=== PATIENT | female | born 1980 | race Caucasian/White ===

== ENCOUNTER 2024-09-27 10:43 | Outpatient (REF) | payer MEDICAID, SELFPAY ==
--- OUTSIDE RECORDS SUMMARY | 2024-09-27 12:37 | XMS_ITS | Encounter Summary ---
Author Organization [employer] Address [address] [place] [address] Care Team Providers Care Real Estate Consultant Name Role Phone Irvin Mensah MD Primary Care Prov ider Reason for Referral * Neurology (Routine) - Pending Review Specialty Diagnoses / Procedures Referred By Contac t Referred To Contact Diagnoses Bilateral carpal tunnel syndrome Procedures EMG Irvin Mensah MD [address] [place] [phone] Phone: tel: fax: Referral ID Status Reason Start Date Expiration Date V isits Requested Visits Authorized [id number] Pending Review 09/27/2024 09/27/2025 1 1 * Consultation (Routine) - Pending Review Specialty Diagnoses / Procedures Referred By Contac t Referred To Contact Physical Therapy Diagnoses Bilateral elbow joint pain Irvin Mensah MD [address] [place] [address] Phone: tel: fax: Referral ID Status Reason Start Date Expiration Date Visits Requested Visits Authorized [id number] Pending Review Specialty Services Required 09/27/2024 09/27/2025 1 1 * Consultation (Routine) - Pending Review Specialty Diagnoses / Procedures Referred By Contac t Referred To Contact Gastroenterology Diagnoses Screening for colon cancer Irvin Mensah MD [address] [place] [address] Phone: tel: fax: Referral ID Status Reason Start Date Expiration Date Visits Requested Visits Authorized [id number] Pending Review Specialty Services Required 09/27/2024 09/27/2025 1 1 * Imaging (Routine) - Authorized Specialty Diagnoses / Procedures Referred By Contac t Referred To Contact Radiology Diagnoses Encounter for screening mammogram for malignant neoplasm of breast Procedures BI Mammogram Screening Tomosynthesis Bilateral Irvin Mensah MD [address] [place] [address] Phone: tel: fax: [address] Phone: tel: fax: Referral ID Status Reason Start Date Expiration Date V isits Requested Visits Authorized [id number] Authorized 09/27/2024 09/27/2025 1 1 Encounter Details Date Type Department Care Team (Late st Contact Info) Description 09/27/2024 9:45 AM EDT Office Visit [facility] [address] [place] [address] Irvin Mensah MD [address] [place] [address] Encounter for medical examination to establish care (Primary Dx); Encounter for screening mammogram for malignant neoplasm of breast; Screening for colon cancer; Encounter for immunization; Bilateral elbow joint pain; Bilateral carpal tunnel syndrome Social History Tobacco Use Types Packs/Day Years Used Date Smoking Tobacco: Never Smokeless Tobacco: Never Tobacco Cessation:Counseling Given: Not Answered Alcohol Use Standard Drinks/Week Comments Yes 0 (1 standard drink = 0.6 oz pur e alcohol) social Depression Answer Date Recorded Patient Health Questionnaire-9 Score 0 09/27/2024 Patient Health Questionnaire-9 Score 0 09/27/2024 Last PHQ-9: Questionnaire Data Not on file 0 09/27/2024 Housing Stability Answer Date Recorded What is your housing situation today? I have mack lazar 09/17/[address] you li ve. Do you have problems with any of the following? None of the above 09/17/2024 Food Insecurity Answer Date Recorded Within the past 12 months, y ou worried that your food would run out before you got money to buy more: Never True 09/17/2024 Within the past 12 months,th e food you bought just didn't last and you didn't have enough money to get more: Never True Transportation Answer Date Recorded In the past 12 months, has l ack of transportation kept you from medical appts, meetings, work or from getting things needed for daily living? No 09/17/2024 Utilities Answer Date Recorded In the past 12 months, has t he electric, gas, oil or water company threatened to shut off services in your home? No 09/17/2024 Depression Answer Date Recorded Patient Health Questionnaire-2 Score 1 09/27/2024 Internet Access Answer Date Recorded Internet Access Q1 Yes 09/17/2024 Internet Access Q2 Not on file 09/17/2024 Comments Unknown Sex and Gender Information Value Date Recorded Sex Assigned at Female 09/26/2024 9:12 AM EDT Legal Sex Female 10:57 AM EST Gender Identity Female 09/26/2024 9:12 AM EDT Sexual Orientation Straight 09/27/2024 11 :45 AM EDT documented as of this encounter Last Filed Vital Signs Vital Sign Reading Time Taken Comments Blood Pressure 119/80 09/27/2024 9:56 AM EDT Pulse 82 09/27/2024 9:56 AM EDT Temperature 36.7 ??C (98.1 ??F) 09/27/2024 9:56 AM ED T Respiratory Rate 20 09/27/2024 9:56 AM EDT Oxygen Saturation 97% 09/27/2024 9:56 AM EDT Inhaled Oxygen Concentration - - Weight 67 kg (147 lb 12.8 oz) 09/27/2024 9:56 AM EDT Height 156 cm (5' 1.42 ) 09/27/2024 9:56 AM EDT Body Mass Index 27.55 09/27/2024 9:56 AM EDT documented in this encounter Progress Notes * Irvin Goel MD - 09/27/2024 9:45 AM EDT Subjective Patient ID: Aileen Monahan is a 43 y.o. female who presents for No chief complaint on file.. HPI Patient was scheduled for a office visit to establish medical care Review of Systems Constitutional: Negative for chills, fatigue and fever. Respiratory: Negative for cough and shortness of breath. Cardiovascular: Negative for chest pain and palpitations. Objective Physical Exam Constitutional: Appearance: Normal appearance. Cardiovascular: Rate and Rhythm: Normal rate. Heart sounds: No murmur heard. Pulmonary: Effort: Pulmonary effort is normal. No respiratory distress. Breath sounds: No stridor. No wheezing or rhonchi. Neurological: General: No focal deficit present. Mental Status: She is alert and oriented to person, place, and time. Psychiatric: Mood and Affect: Mood normal. Behavior: Behavior normal. Assessment/Plan Problem List Items Addressed This Visit Encounter for medical examination to establish care - Primary Last pcp visit >5 years ago Hospitalization: - ER:- [facility]x:- [facility] All: - Meds: motrin 800mg Menarche: 11yrs LMP: 09/13/24 A1 Relevant Orders CBC auto differential Comprehensive Metabolic Panel Hemoglobin A1c Lipid Panel, Standard TSH W/Reflex to FT4 HIV-1/2 Antigen and Antibodies, Fourth Generation, with Reflexes Hepatitis C Antibody with Reflex to HCV, RNA, Quantitative, Real-Time PCR Encounter for screening mammogram for malignant neoplasm of breast Relevant Orders BI Mammogram Screening Tomosynthesis Bilateral Screening for colon cancer Will place referral Relevant Orders Referral to Gastroenterology Other Visit Diagnoses Encounter for immunization Relevant Orders TDAP VACCINE 7 yrs + Bilateral elbow joint pain Relevant Orders Referral to Physical Therapy Bilateral carpal tunnel syndrome Relevant Orders EMG documented in this encounter Miscellaneous Notes * Assessment & Plan Note - Irvin Goel MD - 09/27/2024 10:17 AM EDTAssociated Problem(s): Screening for colon cancer Will place referral * Assessment & Plan Note - Irvin Goel MD - 09/27/2024 10:09 AM EDTAssociated Problem(s): Encounter for medical examination to establish care Last pcp visit >5 years ago Hospitalization: - ER:- [facility]mhx:- [facility]: [facility] All: - Meds: motrin 800mg Menarche: 11yrs LMP: 09/13/24 A1 documented in this encounter Plan of Treatment Scheduled Orders Name Type Priority Associated Diagnoses Orde r Schedule BI Mammogram Screening Tomosynthesis Bilateral Imaging Routine Encounter for screening mammogram for malignant neoplasm of breast Expected: 09/27/2024, Expires: 11/27/2025 CBC auto differential Lab Routine Encounter for medical examination to establish care Expected: 09/27/2024 (Approximate), Expires: 09/27/2025 Comprehensive Metabolic Panel Lab Routine Encounter for medical examination to establish care Expected: 09/27/2024 (Approximate), Expires: 09/27/2025 Hemoglobin A1c Lab Routine Encounter for medical examination to establish care Expected: 09/27/2024 (Approximate), Expires: 09/27/2025 Lipid Panel, Standard Lab Routine Encounter for medical examination to establish care Expected: 09/27/2024 (Approximate), Expires: 09/27/2025 TSH W/Reflex to FT4 Lab Routine Encounter for medical examination to establish care Expected: 09/27/2024 (Approximate), Expires: 09/27/2025 HIV-1/2 Antigen and Antibodies, Fourth Generation, with Reflexes Lab Routine Encounter for medical examination to establish care Expected: 09/27/2024 (Approximate), Expires: 09/27/2025 Hepatitis C Antibody with Reflex to HCV, RNA, Quantitative, Real-Time PCR Lab Routine Encounter for medical examination to establish care Expected: 09/27/2024, Expires: 09/27/2025 EMG Neurology Routine Bilateral carpal tunnel syndrome Expected: 09/27/2024, Expires: 03/29/2025 Scheduled Referrals Name Type Priority Associated Diagnoses Order Schedule Referral to Gastroenterology Outpatient Referral Routine Screening for colon cancer Expected: 09/27/2024 (Approximate), Expires: 09/27/2025 Referral to Physical Therapy Outpatient Referral Routine Bilateral elbow joint pain Expected: 09/27/2024 (Approximate), Expires: 09/27/2025 documented as of this encounter Visit Diagnoses Diagnosis Encounter for medical examination to establish care- Primary Encounter for screening mammogram for malignant neoplasm of breast Screening for colon cancer Special screening for malignant neoplasms, colon Encounter for immunization Bilateral elbow joint pain Bilateral carpal tunnel syndrome Carpal tunnel syndrome documented in this encounter Additional Health Concerns Assessment Noted Time PHQ-9 Depression Total Score: 0 09/28/19 9:57 AM EDT documented as of this encounter Care Teams Real Estate Consultant Relationship Specialty Start Date End Date ArciniegaIrvin Griffin MD [address] [place] [phone] PCP - General Internal Medicine 09/27/24 documented as of this encounter
--- OUTSIDE RECORDS SUMMARY | 2024-09-27 12:37 | XMS_ITS | Clinical Summary ---
Author Organization [employer] Address [address] [place] [address] [address] [place] [address] Care Team Providers Care Ocean Forwarder Name Role Phone Irvin Mensah MD Primary Care Prov ider Active Problems Problem Noted Date Diagnosed Date Encounter for medical examination to establish c are 09/27/2024 Assessment & Plan (09/27/2024 10:09 AM EDT): Last pcp visit >5 years ago Hospitalization: - ER:- [facility]:- [facility] All: - Meds: motrin 800mg Menarche: 11yrs LMP: 09/13/24 A1 Encounter for screening mamm ogram for malignant neoplasm of breast 09/27/2024 Screening for colon cancer 09/27/2024 Assessment & Plan (09/27/2024 10:17 AM EDT): Will place referral Encounters Date Type Department Care Team Description 09/27/2024 9:45 AM EDT Office Visit [facility] [address] [place] [address] Irvin Mensah MD Encounter for medical examination to establish care (Primary Dx); Encounter for screening mammogram for malignant neoplasm of breast; Screening for colon cancer; Encounter for immunization; Bilateral elbow joint pain; Bilateral carpal tunnel syndrome 09/27/2024 Travel 09/17/2024 Patient Outreach [facility] [address] [place] [address] Irvin Mensah MD Pre-visit Planning (SDOH screening negative and Tobacco screening negative) 08/29/2024 Population Health Risk Score [facility] [address] [place] [id number] Provider, Population Health Generic from Last 3 Months Family History Medical History Relation Name Comments Cancer Father Diabetes Mother Hypertension Mother Breast cancer Sister Relation Name Status Comments Father Mother Sister Social History Tobacco Use Types Packs/Day Years [...] Orientation Straight 09/27/2024 11 :45 AM EDT Last Filed Vital Signs Vital Sign Reading [...] Mass Index 27.55 09/27/2024 9:56 AM EDT Plan of Treatment Health Maintenance Due Date Last Done Comments HIV Screening 1979 Family Planning (PISQ) 12/12/1994 Hepatitis C Screening 12/12/1997 DTaP/Tdap/Td Vaccines (1 - Tdap) 12/12/1998 Hepatitis B Vaccines (1 of 3 - 19+ 3-dose series) 12/12/1998 Pap Smear 12/12/2000 Cervical Cancer Screening 12/12/2009 HPV/Cotest 12/12/2009 Mammogram 2019 COVID-19 Vaccine ( - 2023-2 5 season) 2024 Influenza Vaccine (#1) 2024 Alcohol/Substance Use Screening 09/27/2025 09/27/2024 Depression Screening 09/27/2025 09/27/2024, 09/27/2024 SDOH Screening 09/27/2025 09/27/2024 Tobacco Screening 09/27/2025 09/27/2024 Zoster Vaccines (1 of 2) 12/12/2029 RSV Patients and Patients Aged 60 years or older (1 - 1-dose 75+ series) 12/12/2054 HIB Vaccines Aged Out No longer eligi ble based on patient's age to complete this topic HPV Vaccines Aged Out No longer eligi ble based on patient's age to complete this topic Hepatitis A Vaccines Aged Out No long er eligible based on patient's age to complete this topic IPV Vaccines Aged Out No longer eligi ble based on patient's age to complete this topic Meningococcal Vaccine Aged Out No meggan sunny eligible based on patient's age to complete this topic Pneumococcal Vaccine: Pediatrics (0 to 5 Years) and At-Risk Patients (6 to 49) Years) Aged Out No longer eligible b ased on patient's age to complete this topic RSV under 20 months Aged Out No longe r eligible based on patient's age to complete this topic Rotavirus Vaccines Aged Out No longer eligible based on patient's age to complete this topic Insurance Anna [employer]oz[employer] [facility] Care Teams Ocean Forwarder Relationship Specialty Start Date End Date Irivn Mensah MD [address] [place] [phone] PCP - General Internal Medicine 09/27/24
--- OUTSIDE RECORDS SUMMARY | 2024-09-27 12:37 | XMS_ITS | Encounter Summary ---
Author Organization [employer] Address [address] [facility] [address] [place] [address] Care Team Providers Care Measurement Specialist Name Role Phone Irvin Mensah MD Primary Care Prov ider Encounter Details Date Type Department Care Team (Latest Contact Info) Description 09/27/2024 Travel Social History Tobacco Use Types Packs/Day Years Used Date Smoking Tobacco: Never Smokeless Tobacco: Never Alcohol Use Standard Drinks/Week Comments Yes 0 [...] AM EDT documented as of this encounter Plan of Treatment Not on file documented as of this encounter Visit Diagnoses Not on filedocumented in this encounter Additional Health Concerns Assessment Noted Time PHQ-9 Depression Total Score: 0 09/28/19 9:57 AM EDT documented as of this encounter Care Teams Measurement Specialist Relationship Specialty Start Date End Date Irvin Mensah MD [address] [place] [id number] PCP - General Internal Medicine 09/27/24 documented as of this encounter
[2024-09-27 14:12] LABS: MANUAL DIFF FLAG NO
[2024-09-27 14:21] LABS: Basophils Absolute Auto 0.1 X10*3/uL (0.0-0.2); Basophils Percent Auto 0.8 % (0-2); Eosinophils Absolute Auto 0.2 X10*3/uL (0.0-0.4); Eosinophils Percent Auto 2.1 % (0-4); Hematocrit 40.4 % (37.0-47.0); Imm Gran Abs Auto 0.03 X10*3/uL (0.00-0.03); Imm Gran Pct Auto 0.4 % (0.0-0.4); Lymphocytes Absolute Auto 2.3 X10*3/uL (1.2-4.9); Lymphocytes Percent Auto 29.4 % (20-40); Mean Corpuscular HGB Conc 34.7 g/dl (31.0-35.0); Mean Corpuscular Hemoglobin 32.1 pg (27.0-33.0); Mean Corpuscular Volume 92.7 fL (80.0-98.0); Mean Platelet Volume 10.7 fL (9.4-12.3); Monocytes Absolute Auto 0.5 X10*3/uL (0.1-1.2); Monocytes Percent Auto 5.8 % (2-11); Neutrophils Absolute Auto 4.8 x10*3/uL (2.0-8.3); Neutrophils Percent Auto 61.5 % (45-73); Platelet Count 294 X10*3/uL (160-400); Red Blood Count 4.36 X10*6/uL (4.20-5.50); Red Cell Distribution Width 13.7 % (11.0-16.0); White Blood Count 7.8 X10*3/uL (4.8-10.8)
[2024-09-27 14:31] LABS: Estimated Average Glucose 97 mg/dL; Hemoglobin A1C 114.1901 umol/L; Total Hemoglobin (HGBA1C) 3622.3729 umol/L
[2024-09-27 14:44] LABS: Alanine Aminotransferase 39 U/L (0-31); Alkaline Phosphatase 49 U/L (39-117); Anion Gap 8 (12-20); Aspartate Amino Transferase 32 U/L (5-31); Bilirubin Total 0.3 mg/dL (0.0-1.0); Blood Urea Nitrogen 14 mg/dL (9-16); Calcium 9.2 mg/dL (8.4-10.2); Carbon Dioxide 26 mmol/L (22-29); Chloride 108 mmol/L (96-108); Cholesterol 179 mg/dL (<200); Estimated Glomerular Filt Rate > 60; Glucose Random 79 mg/dL (60-115); HDL Cholesterol 57 mg/dL (>40); LDL Cholesterol Calculated 104 mg/dL (<100); Sodium 138 mmol/L (135-145); Total Protein 7.3 g/dL (6.5-8.0); Triglycerides 94 mg/dL (<150)
[2024-09-27 14:50] LABS: TSH reflex Free T4 2.72 uIU/mL (0.32-4.0)
[2024-09-28 03:56] LABS: HIV AB/AG Nonreactive (Nonreactive); HIV Num 1 0.07 S/CO (0.00-0.99); ~HepC Num1 0.11 S/CO (0.00-0.79); ~Hepatitis C Antibody Nonreactive (Nonreactive)
== END 2024-09-27 10:44 | disposition home or self-care (01) ==
LOC: HO.CHCLDS 10:43
PROVIDERS: Visit Provider Internal Medicine
DX: Z00.00 Encounter for general adult medical examination without abnormal findings (principal)
CPT/HCPCS: 36415; 80053; 80061; 83036; 84443; 85025; 86803; 87389

== ENCOUNTER 2024-10-30 14:50 | Outpatient (REF) | payer MEDICAID, SELFPAY ==
--- OUTSIDE RECORDS SUMMARY | 2024-10-30 14:53 | XMS_ITS | Encounter Summary ---
Author Organization [employer] Address [address] [facility] [address] [place] [address] Care Team Providers Care Credit Or Loans Officer Name Role Phone Irvin Mensah MD Primary Care Prov ider Encounter Details Date Type Department Care Team (Latest Contact Info) Description 10/30/2024 Travel Social History Tobacco Use Types Packs/Day [...] Access Q2 Not on file 09/17/2024 Comments No Sex and Gender Information Value Date Recorded [...] documented as of this encounter Care Teams Credit Or Loans Officer Relationship Specialty Start Date End Date Irvin Mensah MD [address] [place] [phone] PCP - General Internal Medicine 09/27/24 documented as of this encounter
[2024-12-04 07:58] LABS: HPV Genotype 16 Negative (Negative); HPV Genotype 18 Negative (Negative); HPV High Risk Negative (Negative)
== END 2024-10-30 14:51 | disposition home or self-care (01) ==
LOC: HO.CHCLNP 14:50
PROVIDERS: Visit Provider Family Medicine
DX: Z12.4 Encounter for screening for malignant neoplasm of cervix (principal)
CPT/HCPCS: 87626; 88175

== ENCOUNTER 2024-10-31 13:15 | Outpatient (REF) | payer MEDICAID, SELFPAY ==
--- NOTE | ~2024-10-31 | XR_ITS ---
EXAMINATION: XR ELBOW, LEFT CLINICAL INFORMATION: 43 yo F wiht left epicondyle tenderness, send to [facility] COMPARISON: None available. TECHNIQUE: AP, lateral, and oblique views of the left elbow. FINDINGS: No fracture, dislocation, or suspicious bone lesion. Normal bone mineralization. Normal alignment. Joint spaces are preserved. No significant arthropathy. The epicondyles appear normal. No significant joint effusion. Soft tissues appear normal. XR/XR elbow LT min 3V IMPRESSION: Normal left elbow. Electronically signed by: Johnny Bryant MD 10/31/2024 02:09 PM EDT
--- OUTSIDE RECORDS SUMMARY | 2024-10-31 14:06 | XMS_ITS | Encounter Summary ---
Author Organization [employer] Address [address] [facility] [address] [place] [address] Care Team Providers Care Systems Engineering Manager Name Role Phone Irvin Mensah MD Primary [...] documented as of this encounter Care Teams Systems Engineering Manager Relationship Specialty Start Date End Date Irvin Mensah MD [address] [place] [phone] PCP - General Internal Medicine 09/27/24 documented as of this encounter
== END 2024-10-31 13:16 | disposition home or self-care (01) ==
LOC: HO.XRAY 13:15
PROVIDERS: PCP Internal Medicine; Visit Provider Family Medicine
DX: M77.12 Lateral epicondylitis, left elbow (principal)
CPT/HCPCS: 73080

== ENCOUNTER → 2024-10-31 13:21 | Outpatient (BNV) | payer MEDICAID, SELFPAY | PROVIDERS: PCP Internal Medicine; Visit Provider Radiology Diagnostic Radiology | DX: M77.12 Lateral epicondylitis, left elbow (principal) | CPT/HCPCS: 73080 ==

== ENCOUNTER 2024-11-01 11:39 | Outpatient (REF) | payer MEDICAID, SELFPAY ==
--- OUTSIDE RECORDS SUMMARY | 2024-11-01 11:56 | XMS_ITS | Encounter Summary ---
Author Organization [employer] Address [address] [facility] [address] [place] [address] Care Team Providers Care Supervisor Frame Assembly Name Role Phone Irvin Mensah MD Primary [...] documented as of this encounter Care Teams Supervisor Frame Assembly Relationship Specialty Start Date End Date Irvin Mensah MD [address] [place] [phone] PCP - General Internal Medicine 09/27/24 documented as of this encounter
== END 2024-11-01 11:40 | disposition home or self-care (01) ==
LOC: HO.MAMMO 11:39
PROVIDERS: PCP Internal Medicine; Visit Provider Internal Medicine
DX: Z12.31 Encounter for screening mammogram for malignant neoplasm of breast (principal)
CPT/HCPCS: 77063; 77067

== ENCOUNTER → 2024-11-01 12:00 | Outpatient (BNV) | payer MEDICAID, SELFPAY | PROVIDERS: PCP Internal Medicine; Visit Provider Internal Medicine | DX: Z12.31 Encounter for screening mammogram for malignant neoplasm of breast (principal) | CPT/HCPCS: 77063; 77067 ==

== ENCOUNTER 2024-11-13 10:38 | Outpatient (REF) | payer MEDICAID, SELFPAY ==
--- NOTE | 2024-11-13 10:41 | EMG_ITS ---
FINDINGS: Bilateral median and ulnar motor and sensory studies were performed. Bilateral radial sensory studies were performed, and paraspinal muscles were tested with a needle. Bilateral median and lateral antecubital brachial sensory studies were also performed. 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 Otherwise, no significant abnormality noted. MD GANESH Hobson/MIRTA / [id number]
--- OUTSIDE RECORDS SUMMARY | 2024-11-13 12:28 | XMS_ITS | Clinical Summary ---
Author Organization [employer] Address [address] [place] [address] Care Team Providers Care Group Fitness Manager Name Role Phone Irvin Mensah MD Primary Care Prov ider Medications No known medications Active Problems Problem Noted Date Diagnosed Date Lateral epicondylitis of left elbow 10/30/2024 Assessment & Plan (10/30/2024 9:41 AM EDT): Ddx lateral epicondylitis vs elbow OA - will order elbow x ray - referral to ortho given persistent symptoms despite conservative therapy - recommend f/up PCP Cervical cancer screening 10/30/2024 Assessment & Plan (10/30/2024 9:40 AM EDT): 43 y.o. here for cervical cancer screening. Will continue monitoring following ASCCP guidelines. Encounter for medical examination to establish c are 09/27/2024 Assessment & Plan (09/27/2024 10:09 AM EDT): Last pcp visit >5 years ago Hospitalization: - ER:- [facility]mhx:- [facility] [place]ian leon 2020 All: - Meds: motrin 800mg Menarche: 11yrs LMP: 09/13/24 A1 Encounter for screening mamm ogram for malignant neoplasm of breast 09/27/2024 Screening for colon cancer 09/27/2024 Assessment & Plan (09/27/2024 10:17 AM EDT): Will place referral Encounters Date Type Department Care Team Description 11/01/2024 Results Follow-Up [facility] [address] [facility] [place] [address] Mandie Gordon MD XR Elbow 3+ Views Left 10/30/2024 9:00 AM EDT Procedure Visit [facility] [address] [place] [address] Mandie Gordon MD Encounter for immunization (Primary Dx); Lateral epicondylitis of left elbow; Cervical cancer screening 10/30/2024 Travel 10/25/2024 HIT Community [place] [employer] [address] [place] [address] Irvin Mensah MD EMG ORDER 09/27/2024 9:45 AM EDT Office Visit [facility] [address] [place] [address] Irvin Mensah MD Encounter for medical examination to establish care (Primary Dx); Encounter for screening mammogram for malignant neoplasm of breast; Screening for colon cancer; Encounter for immunization; Bilateral elbow joint pain; Bilateral carpal tunnel syndrome 09/27/2024 Travel 09/17/2024 Patient Outreach [facility] [address] [place] [address] Irvin Mensah MD Pre-visit Planning (SDOH screening negative and Tobacco screening negative) 08/29/2024 Population Health Risk [facility] Department [address] [place] [phone] Provider, Population Health Generic from Last 3 Months Immunizations Immunization Administration Dates Next Due Tdap 10/30/2024 Family History Medical History Relation Name Comments [...] Sign Reading Time Taken Comments Blood Pressure 117/74 10/30/2024 9:15 AM EDT Pulse 74 10/30/2024 9:15 AM EDT Temperature 37.1 ??C (98.8 ??F) 10/30/2024 9:15 AM ED T Respiratory Rate 20 10/30/2024 9:15 AM EDT Oxygen Saturation 98% 10/30/2024 9:15 AM EDT Inhaled Oxygen Concentration - - Weight 67.4 kg (148 lb 9.6 oz) 10/30/2024 9:15 A M EDT Height 156 cm (5' 1.42 ) 10/30/2024 9:15 AM EDT Body Mass Index 27.7 10/30/2024 9:15 AM EDT Plan of Treatment Health Maintenance Due Date Last Done Comments Disability Screening 1980 Family Planning (PISQ) 12/12/1994 Hepatitis B Vaccines (1 of 3 - 19+ 3-dose series) 12/12/1998 COVID-19 Vaccine ( - 2023-2 5 season) 2024 Postponed from 02/04 (Supply/Drug Shortage) Influenza Vaccine (Season Ended) 2025 Alcohol/Substance Use Screening 09/27/2025 09/27/2024 Depression Screening 09/27/2025 09/27/2024, 09/27/2024 SDOH Screening 09/27/2025 09/27/2024 Tobacco Screening 10/30/2025 10/30/2024 Mammogram 11/01/2026 11/01/2024 Cervical Cancer Screening 10/30/2029 HPV/Cotest 10/30/2029 Pap Smear 10/30/2029 10/30/2024 Zoster Vaccines (1 of 2) 12/12/2029 DTaP/Tdap/Td Vaccines (2 - T d or Tdap) 10/30/2034 10/30/2024 RSV Patients and Patients Aged 60 years or older (1 - 1-dose 75+ series) 12/12/2054 HIV Screening Completed 09/27/2024 Hepatitis C Screening Completed 09/27/2024 HIB Vaccines Aged Out No longer eligi [...] patient's age to complete this topic Meningococcal B Vaccine Aged Out No l onger eligible based on patient's age to complete [...] on patient's age to complete this topic Procedures Procedure Name Priority Date/Time Associated Diagnosis Comments BI MAMMOGRAM SCREENING TOMOSYNTHESIS BILATERAL Routine 11/01/2024 11:55 AM EDT Encounter for screening mammogram for malignant neoplasm of breast XR ELBOW 3+ VIEWS LEFT Routine 10/31/2024 1:30 PM EDT Lateral epicondylitis of left elbow PAP SMEAR Routine 10/30/2024 9:42 AM EDT Cervical cancer screening HEPATITIS C AB W/REFL TO HCV RNA, QN, PCR Routine 09/27/2024 10:47 AM EDT Encounter for medical examination to establish care HIV 1/2 ANTIGEN/ANTIBODY, FOURTH GENERATION W/RFL Routine 09/27/2024 10:47 AM EDT Encounter for medical examination to establish care TSH W/REFLEX TO FT4 Routine 09/27/2024 1 0:47 AM EDT Encounter for medical examination to establish care LIPID PANEL, STANDARD Routine 09/27/2024 10:47 AM EDT Encounter for medical examination to establish care HEMOGLOBIN A1C Routine 09/27/2024 10:47 AM EDT Encounter for medical examination to establish care COMPREHENSIVE METABOLIC PANEL Routine 09/27/2024 10:47 AM EDT Encounter for medical examination to establish care CBC WITH AUTO DIFFERENTIAL Routine 09/27/2024 10:47 AM EDT Encounter for medical examination to establish care from Last 3 Months Results * BI Mammogram Screening Tomosynthesis Bilateral (11/01/2024 11:55 AM EDT) Anatomical Region Laterality Modality Breast Bilateral Mammography 11/01/2024 11:5 5 AM EDT Narrative 11/09/2024 4:28 PM EDT ? [facility] ? [address] ?[place] [address] ?[phone] ? Mammography Report ? Signed ? Patient: Murray Taniya,Aileen ?MR#: M ?? [id number] ? : 1980 ?Acct:[id number] ? Age/Sex: 43 / F ?ADM Date: 05/29/25 ? Loc: HO.MAMMO ? Attending Dr: Irvin Goel MD ? Ordering Physician: Irvin Mensah MD ?Res ?? ults: 1Negative ? Date of Service: 11/01/24 ?Follow Up: 1 Year From Orig ?? inal Mammogram ? Procedure(s): MM tomosynthesis screening BI ?? Accession Number(s): [id number] ? cc: Irvin Mensah MD ? EXAMINATION: ?? MM SCREENING DIGITAL BREAST TOMOSYNTHESIS, BILATERAL ? CLINICAL INFORMATION: ? Screening. Asymptomatic. ? COMPARISON: ?? Mammography: Baseline. ? TECHNIQUE: ?? Digital breast mammography with tomosynthesis is performed in both the ?? craniocaudal and mediolateral oblique views along with computer-aided ?? detection (CAD). ? FINDINGS: ?? There are scattered areas of fibroglandular density (ACR BI-RADS breast ?? composition Category b). ? There are no significant masses, abnormal calcifications, or other ?? abnormalities. ? MM/MM tomosynthesis screening BI ?? IMPRESSION: ?? No mammographic evidence of malignancy. ? ASSESSMENT: ? BI-RADS BI-RADS 1 - Negative ? RECOMMENDATION: ?? Routine annual mammography screening. ? 1 year F/U ? This examination should not preclude the clinical evaluation of a ?? suspicious palpable abnormality. ? This patient's information was entered into a reminder system with a ?? target due date for their next mammogram. ? Electronically signed by: ??Debbie Lebron DO ??11/09/2024 04:26 PM EDT ?? RP ? Dictated By: ?Debbie Lebron DO ? Signed By: ?<Electronically signed by Debbie Lebron, DO in OV> ? 11/09/24 1626 ? DD/ 1155 ? TD/TT: 11/01/24 1208 ? Analytics Leader: ? Procedure Note Donotuseinterpreter, Image - 11/09/2024 [facility] [address] [place] [address] Mammography Report Signed Patient: Aileen WallaceMR#: M [id number] : 1980Acct:[id number] Age/Sex: 43 / FADM Date: 11/01/24 Loc: HO.MAMMO Attending Dr: Irvin Goel MD Ordering Physician: Irvin Mensah ults: 1Negative Date of Service: 11/01/24Follow Up: 1 Year From Orig inal Mammogram Procedure(s): MM tomosynthesis screening BI Accession Number(s): [id number] cc: Irvin Mensah MD EXAMINATION: MM SCREENING DIGITAL BREAST TOMOSYNTHESIS, BILATERAL CLINICAL INFORMATION: Screening. Asymptomatic. COMPARISON: Mammography: Baseline. TECHNIQUE: Digital breast mammography with tomosynthesis is performed in both the craniocaudal and mediolateral oblique views along with computer-aided detection (CAD). FINDINGS: There are scattered areas of fibroglandular density (ACR BI-RADS breast composition Category b). There are no significant masses, abnormal calcifications, or other abnormalities. MM/MM tomosynthesis screening BI IMPRESSION: No mammographic evidence of malignancy. ASSESSMENT: BI-RADS BI-RADS 1 - Negative RECOMMENDATION: Routine annual mammography screening. 1 year F/U This examination should not preclude the clinical evaluation of a suspicious palpable abnormality. This patient's information was entered into a reminder system with a target due date for their next mammogram. Electronically signed by: Debbie Lebron DO 11/09/2024 04:26 PM EDT Dictated By: Debbie Lebron DO Signed By: <Electronically signed by Debbie Lebron DO in OV> 11/09/24 1626 DD/ 1155 TD/TT: 11/01/24 1208 Analytics Leader: Irvin Goel MD IMG BI PROCEDURES Final Result * XR Elbow 3+ Views Left (10/31/2024 1:30 PM EDT) Anatomical Region Laterality Modality Upper Extremities, Elbow Left Radiogr aphic Imaging 10/31/2024 1:30 PM EDT Narrative 10/31/2024 2:13 PM EDT ? [facility] ?[address] ?[place] [address] ?XRay Report ? Signed ? Patient: Nely Wallaceana ?MR#: M ?? [id number] ? : 1980 ?Acct:[id number] ? Age/Sex: 43 / F ?ADM Date: 10/31/24 ? Loc: HO.XRAY ? Attending Dr: Mandie Gordon MD ? Ordering Physician: Mandie Gordon MD ?? Date of Service: 10/31/24 ?? Procedure(s): XR elbow LT min 3V ?? Accession Number(s): [id number] ? cc: Irvin Mensah MD; Mandie Gordon MD ? EXAMINATION: ?? XR ELBOW, LEFT ? CLINICAL INFORMATION: ?? 43 yo F wiht left epicondyle tenderness, [place] [facility] ? COMPARISON: ?? None available. ? TECHNIQUE: ?? AP, lateral, and oblique views of the left elbow. ? FINDINGS: ?? No fracture, dislocation, or suspicious bone lesion. Normal bone ?? mineralization. ?? Normal alignment. ?? Joint spaces are preserved. No significant arthropathy. ?? The epicondyles appear normal. ? No significant joint effusion. ? Soft tissues appear normal. ? XR/XR elbow LT min 3V ?? IMPRESSION: ?? Normal left elbow. ? Electronically signed by: ??Johnny Bryant MD ??10/31/2024 02:09 PM EDT RP ?? Workstation: [id number] ? Dictated By: ?Johnny Bryant MD ? Signed By: ?<Electronically signed by Johnny Bryant MD in OV> ?10/31/24 1409 ? DD/ 1330 ? TD/TT: 10/31/24 1340 ? Analytics Leader: ? Procedure Note Donotleoninterpreter, Image - 10/31/[address] [address] XRay Report Signed Patient: Nasir Wallace#: M [id number] : 1980Acct:[id number] Age/Sex: 43 / FADM Date: 10/31/24 Loc: HO.XRAY Attending Dr: Mandie Gordon MD Ordering Physician: Mandie Gordon MD Date of Service: 10/31/24 Procedure(s): XR elbow LT min 3V Accession Number(s): [id number] cc: Irvin Mensah MD; Mandie Gordon MD EXAMINATION: XR ELBOW, LEFT CLINICAL INFORMATION: 43 yo F wiht left epicondyle tenderness, [place] [facility] COMPARISON: None available. TECHNIQUE: AP, lateral, and oblique views of the left elbow. FINDINGS: No fracture, dislocation, or suspicious bone lesion. Normal bone mineralization. Normal alignment. Joint spaces are preserved. No significant arthropathy. The epicondyles appear normal. No significant joint effusion. Soft tissues appear normal. XR/XR elbow LT min 3V IMPRESSION: Normal left elbow. Electronically signed by: Johnny Bryant MD 10/31/2024 02:09 PM EDT Dictated By: Johnny Bryant MD Signed By: <Electronically signed by Johnny Bryant MD in OV> 10/31/24 1404 DD/ 1330 TD/TT: 10/31/24 1340 Analytics Leader: us Mandie Gordon MD IMG XR PROCEDURES Final Resul t * Pap Smear (10/30/2024 9:42 AM EDT) Swab 10/30/2024 9:42 AM EDT 10/31/2024 9:00 AM EDT [facility] - 11/02/2024 10:28 AM EDT ----- ------- Name: Aileen Wallace ?Age/Sex: 43/F ? : 1980 Unit#: [id number] ?? Attend Dr: Mandie Gordon MD ?Re10/30/24 ?Status: DEP REF ? Location: HO.CHCLNP ? Disch: ? ----- ------- SPEC : [id number] ? RECD: 10/31/24-899 ? STATUS: ??SOUT ? REQ NUM: [id number] ? PAM: 10/30/24-941 ? SUBM DR: Mandie Gordon MD ? ENTERED: ??10/31/24 ?SP TYPE: Pap Smr ?OTHR : ? ORDERED: ??Pap Smear ? Interpretation ?? Satisfactory for evaluation. ?? Negative for intraepithelial lesion or malignancy. ?? HPV High Risk: ??Negative ? HPV Genotyping 16: ??Negative ?? HPV Genotyping 18: ??Negative ?Clinical Information LMP: 10/09/2024 Previous PAP test: Unknown date/findings ? Material Received ?? ThinPrep-Cervical ? PAP Disclaimer As of March 28, 2024, the technical services to include automated prescreening performed by the ThinPrep Imaging System, PAP screening and HPV testing will be performed at [facility] (CLIA #[id number]), [address] [place] [address]. ??Testing for HPV was performed using the Meg LINDA [id number] system. ??The presence of HPV in the female genital tract is associated with a number of diseases, including cervical carcinoma. ??The HPV DNA high risk pool tests for HPV 31, 33, 35, 39, 45, 51, 52, 56, 58, 59, 66 and 68. ??The testing for HPV 16 and 18 genotypes has also been performed. ??A positive result indicates detection of nucleic acid sequences from one or more subtypes, whereas a negative result indicates such sequences were not detected. All professional services are performed by [facility] ([address] [place] [address]; Ph: ??[phone]; CLIA #[id number]). The PAP Test is a screening procedure with the inherent possibility of both false negative and false positive results. ??Results should be interpreted in the context of historic and current clinical findings. ??Reliability of the PAP Test is enhanced by performing the test on a regular repetitive basis. ----- ------- Signed (signature on file) MIRZA Edge ([facility]) 11/02/24 1028 ? ----- ------- ? END OF REPORT ? us Mandie Gordon MD LAB CYTOLOGY ORDERABLES Final Result [facility] [address] [place] [phone] * TSH W/Reflex to FT4 (09/27/2024 10:47 AM EDT) TSH reflex Free T4 2.72 0.32 - 4.0 uIU/mL [facility] Blood Venous blood specimen / Unknown 09/27/2024 10:47 AM EDT 09/27/2024 2:06 PM EDT us Irvin Goel MD LAB BLOOD ORDERABL ES Final Result [facility] [address] [place] [address] [phone] * CBC auto differential (09/27/2024 10:47 AM EDT) White Blood Count 7.8 4.8 - 10.8 X10*3/uL [facility] Red Blood Count 4.36 4.20 - 5.50 X10*6/uL [facility] Hemoglobin 14.0 12.0 - 16.0 g/dl [facility] Hematocrit 40.4 37.0 - 47.0 % [facility] Mean Corpuscular Volume 92.7 80.0 - 98.0 fL [facility] Mean Corpuscular Hemoglobin 32.1 27.0 - 33.0 pg [facility] Mean Corpuscular HGB Conc 34.7 31.0 - 35.0 g/dl [facility] Red Cell Distribution Width 13.7 11.0 - 16.0 % [facility] Platelet Count 294 160 - 400 X10*3/uL [facility] Mean Platelet Volume 10.7 9.4 - 12.3 fL [facility] Neutrophils Percent Auto 61.5 45 - 73 % [facility] Imm Gran Pct Auto 0.4 0.0 - 0.4 % [facility] Lymphocytes Percent Auto 29.4 20 - 40 % [facility] Monocytes Percent Auto 5.8 2 - 11 % [facility] Eosinophils Percent Auto 2.1 0 - 4 % [facility] Basophils Percent Auto 0.8 0 - 2 % [facility] NRBC Pct Auto 0.0 0.0 - 0.2 /100WBC [facility] Neutrophils Absolute Auto 4.8 2.0 - 8.3 x10*3/uL [facility] Imm Gran Abs Auto 0.03 0.00 - 0.03 X10*3/uL [facility] Lymphocytes Absolute Auto 2.3 1.2 - 4.9 X10*3/uL [facility] Monocytes Absolute Auto 0.5 0.1 - 1.2 X10*3/uL [facility] Eosinophils Absolute Auto 0.2 0.0 - 0.4 X10*3/uL [facility] Basophils Absolute Auto 0.1 0.0 - 0.2 X10*3/uL [facility] NRBC Abs Auto 0.000 0.0 - 0.012 X10*3/uL [facility] Blood Venous blood specimen / Unknown 09/27/2024 10:47 AM EDT 09/27/2024 2:08 PM EDT Irvin Goel MD LAB BLOOD ORDERABL ES Final Result Performing Organization Address [facility]/ZIP Co de Phone Number [facility] [address] [place] [phone] * Hepatitis C Antibody with Reflex to HCV, RNA, Quantitative, Real-Time PCR (09/27/2024 10:47 AM EDT) Hepatitis C Antibody Nonreactive Nonreactive [facility] Comment:Antibodies to HCV no t detected; does not exclude early acuteHCV infection. Blood Venous blood specimen / Unknown 09/27/2024 10:47 AM EDT 09/27/2024 2:06 PM EDT Irvin Goel MD LAB BLOOD ORDERABL ES Final Result Performing Organization Address City/[facility]/ZIP Co de Phone Number [facility] [address] [place] [phone] * HIV-1/2 Antigen and Antibodies, Fourth Generation, with Reflexes (09/27/2024 10:47 AM EDT) HIV AB/AG Nonreactive Nonreactive [facility] Comment:HIV-1 p24 Ag and/or HIV-1/HIV-2 Ab not detected.A test result that is nonreactive does not exclude thepossibility of exposure to or infection with HIV-1 and/orHIV-2. Nonreactive results in this assay for individualswith prior exposure to HIV-1 and/or HIV-2 may be due toantigen and antibody levels that are below the limit ofdetection of this assay.The [employer] HIV Ag/Ab Combo assay result andsupplemental assay results should be interpreted inconjunction with the patient's clinical presentation,history and other laboratory results. If the results areinconsistent with clinical evidence, additional testing issuggested to confirm the result. Blood Venous blood specimen / Unknown 09/27/2024 10:47 AM EDT 09/27/2024 2:06 PM EDT Irvin Goel MD LAB BLOOD ORDERABL ES Final Result Performing Organization Address [facility] Co de Phone Number [facility] [address] [place] [phone] * Hemoglobin A1c (09/27/2024 10:47 AM EDT) Hemoglobin A1c 5.0 <6.0 % [facility] Comment:Hemoglobin A1C Refer ence Range Adults: 4.8 - 6.0 % Non diabetic: < 6.0 % Goal: < 7.0 %Additional Action Suggested: > 8.0 %Note: Hemoglobin A1c results are invalid for patients with abnormal amounts of HbF. Blood transfusions may impact the HbA1c concentration in the patient sample. Estimated Average Glucose 97 mg/dL [facility] Comment:eAG = Estimated ave rage glucose which is %A1C expressed asaverage glucose, using the formula of the Y1U-WcjtyclExwqfxn Glucose study (ADAG), Diabetes Care, Vol.31,#8,2007 Blood Venous blood specimen / Unknown 09/27/2024 10:47 AM EDT 09/27/2024 2:08 PM EDT Irvin Goel MD LAB BLOOD ORDERABL ES Final Result Performing Organization Address [facility] de Phone Number [facility] [address] [place] [phone] * (ABNORMAL) Lipid Panel, Standard (09/27/2024 10:47 AM EDT) Triglycerides 94 <150 mg/dL [facility] Comment:Desirable Triglyceri de: less than 150 mg/dLBorderline High Triglyceride 150-199 mg/dLHigh Triglyceride: 200-499 mg/dLVery High Triglyceride: greater than or equal to 5OO mg/dL Cholesterol 179 <200 mg/dL [facility] Comment:Desirable Cholestero l: less than 200 mg/dLBorderline High Cholesterol: 200-239 mg/dLHigh Cholesterol: greater than 239 mg/dL LDL Cholesterol Calculated 104(H) <100 mg/dL [facility] Comment:Desirable LDL: less than 100 mg/dLNear Optimal/Above Optimal LDL: 110- 129 mg/dLBorderline High LDL: 130-159 mg/dLHigh LDL: 160-189 mg/dLVery High LDL: greater than or equal to 190 mg/dL HDL Cholesterol 57 >40 mg/dL [facility] Comment:Desirable HDL: great er than 40 mg/dL Note: This HDL assay may give artificially low results in patients with liver disease. Blood Venous blood specimen / Unknown 09/27/2024 10:47 AM EDT 09/27/2024 2:06 PM EDT us Irvin Goel MD LAB BLOOD ORDERABL ES Final Result [facility] [address] [place] [phone] * (ABNORMAL) Comprehensive Metabolic Panel (09/27/2024 10:47 AM EDT) Sodium 138 135 - 145 mmol/L [facility] Potassium 4.0 3.3 - 5.1 mmol/L [facility] Chloride 108 96 - 108 mmol/L [facility] Carbon Dioxide 26 22 - 29 mmol/L [facility] Anion Gap 8(L) 12 - 20 [facility] Urea Nitrogen (BUN) 14 9 - 16 mg/dL [facility] Creatinine, Serum 0.60 0.5 - 1.4 mg/dL [facility] Estimated Glomerular Filt Rate >60 [facility] Comment:Chronic Kidney Disea se: Estimated GFR < 60 mL/min/1.12r1Enbgsu Kidney Disease: Estimated GFR < 15 mL/min/1.73m2 Glucose 79 60 - 115 mg/dL [facility] Calcium 9.2 8.4 - 10.2 mg/dL [facility] Bilirubin, Total 0.3 0.0 - 1.0 mg/dL [facility] Aspartate Amino Transferase 32(H) 5 - 31 U/L [facility] Alanine Aminotransferase 39(H) 0 - 31 U/L [facility] Total Protein 7.3 6.5 - 8.0 g/dL [facility] Albumin Level 4.0 3.5 - 5.0 g/dL [facility] Alkaline Phosphatase 49 39 - 117 U/L [facility] Blood Venous blood specimen / Unknown 09/27/2024 10:47 AM EDT 09/27/2024 2:06 PM EDT us Irvin Goel MD LAB BLOOD ORDERABL ES Final Result [facility] [address] [place] [phone] from Last 3 Months Insurance [email or web address] Care Teams Group Fitness Manager Relationship Specialty Start Date End Date Irvin Mensah MD [address] [place] [phone] PCP - General Internal Medicine 09/27/24
== END 2024-11-13 10:39 | disposition home or self-care (01) ==
LOC: HO.NEURO 10:38
PROVIDERS: PCP Internal Medicine; Visit Provider Internal Medicine
DX: G56.03 Carpal tunnel syndrome, bilateral upper limbs (principal)
CPT/HCPCS: 95886; 95913

== ENCOUNTER 2025-01-18 08:23 | Outpatient (AMB) | payer MEDICAID, SELFPAY ==
--- NOTE | 2025-01-18 08:30 | MHC.OFFVIS ---
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 She states that having the repetitive movements and hold the clients hand for a long period of time and lifting heavy bags. She has tried a elbow brace and taking Motrin which gives her relief. 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 Trevor Monahan is a 44-year-old right-hand dominant female who presents to the office today for evaluation of left elbow pain. 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 She performs consistent repetitive motion. Pain has been present for many years but waxes and wanes depending on how active she is. Pain is worse after long periods of time performing repetitive motion and heavy lifting. She has tried an elbow counterforce brace which does help some as well as Motrin which gives her mild relief. 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 No ecchymosis, erythema, or edema. No tenderness to palpation over the olecranon. No tenderness to the medial or lateral epicondyle. Mild pain with resisted wrist flexion and extension at the medial and lateral epicondyles. Psych Appearance: grossly normal Mental Status: mental status grossly normal Attitude: cooperative Assessment & Plan Assessment & Plan (1) Medial epicondylitis, left elbow: Code(s): M77.02 - Medial epicondylitis, left elbow Category: Medical (2) Lateral epicondylitis, left elbow: Code(s): M77.12 - Lateral epicondylitis, left elbow Category: Medical Plan Ms. Trevor Monahan is a 44-year-old right-hand dominant female who presents to the office today for evaluation of left elbow pain. 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 She performs consistent repetitive motion. Pain has been present for many years but waxes and wanes depending on how active she is. Pain is worse after long periods of time performing repetitive motion and heavy lifting. She has tried an elbow counterforce brace which does help some as well as Motrin which gives her mild relief. While in the office today, I encouraged the patient to continue using the counterforce elbow brace. I educated the patient on proper instruction of use. We discussed the role of physical therapy, anti-inflammatories and cortisone injection. At this time the patient will try a course of diclofenac 75 mg to be taken p.o. b.i.d. and attend physical therapy. Should the patient have continuation of pain cortisone injection may be considered at that time. X-rays that were obtained on 10/31/2024 of the left elbow were negative for any acute fracture or dislocation. She will follow up with Orthopedics p.r.n., sooner if needed Coding Level of Care Code New Pt Level 3 (72936) Diagnoses Medial epicondylitis, left elbow M77.02 Lateral epicondylitis, left elbow M77.12
[2025-01-18 08:36] VITALS: BMI 27.4
== END 2025-01-18 09:16 | disposition home or self-care (01) ==
LOC: HO.HOS 08:23
PROVIDERS: PCP Internal Medicine; Visit Provider Physician Assistant
DX: M77.02 Medial epicondylitis, left elbow (principal); M77.12 Lateral epicondylitis, left elbow
CPT/HCPCS: 99203

== ENCOUNTER → 2025-01-18 08:23 | Outpatient (BNVA) | payer MEDICAID, SELFPAY | PROVIDERS: PCP Internal Medicine; Visit Provider Physician Assistant | DX: M25.522 Pain in left elbow (principal); M77.02 Medial epicondylitis, left elbow; M77.12 Lateral epicondylitis, left elbow | CPT/HCPCS: 99212 ==

== ENCOUNTER 2025-02-05 09:54 | Outpatient (AMB) | payer MEDICAID, SELFPAY ==
--- NOTE | 2025-02-05 09:58 | A.OFFVIS_ITS ---
Vital Signs 02/05/25 10:08 Height 5 ft 2 in Weight 150 lb BMI 27.4 BP 106/70 Blood Pressure Location Rt brachial Position Sitting Pulse 80 Pulse Source Pulse Oximeter Pulse Oximetry (%) 100 Oxygen Delivery Method Room Air Intake Visit Reasons: colo screening Intake Note: New pt for initial colo screening. CC; Pt denies any GI sx or concerns at this time. No pertinent FMHx. Signals Intelligence Superintendent Required: Yes Signals Intelligence Superintendent Services: Signals Intelligence Superintendent Present Signals Intelligence Superintendent Name: Vish [id number] Carlos Eduardo Levy ([facility]) Information Interpreted: clinical only Accompanied by: Self / Same As Patient Allergies No Known Allergies Allergy (Verified 01/18/25 08:35) HPI HPI colo screening: Details: 44 year old? female is here today for pre colonoscopy screening.? Patient was sent to us by her PCP.? This is her first colonoscopy screening.? Patient denies any gastrointestinal symptoms in the past or at present.? Denies any personal or family history of gastrointestinal disease, colon polyps, or CRC.? Denies history of difficulty with sedation or anesthesia in the past.? Negative for history of sleep apnea.? Denies any history of cardiac, renal, pulmonary, or hepatic disease.?? No history of infectious? diseases like hepatitis A, B, C, HIV or tuberculosis.? Patient is not on any anticoagulation [facility] Social History Alcohol intake: never Patient Tobacco Use Status: Never used Tobacco Current occupational status: employed Current occupation: [employer]/ right hand dominant Review of Systems Const Denies weight gain and Denies weight loss ENT Reports no additional complaints, Denies dysphagia and Denies odynophagia Card Reports no additional complaints Resp Reports no additional complaints GI Denies abdominal pain, Denies belching, Denies melena, Denies bloating, Denies change in bowel habits, Denies dysphagia, Denies excessive flatus, Denies dyspepsia, Denies heartburn, Denies diarrhea, Denies loose stools, Denies nausea, Denies odynophagia and Denies vomiting Reports no additional complaints Musc Reports no additional complaints Neuro Reports no additional complaints Psych Reports no additional complaints Endo Reports no additional complaints Physical Exam Vital Signs: BMI result Body Mass Index 27.4 Const General: healthy appearing, no acute distress and well developed Nutritional Appearance: well nourished Orientation/consciousness: patient oriented x3 Resp Effort & Inspection: normal respiratory effort, able to speak in complete sentences, no tracheal deviation and symmetric chest movement Auscultation: clear to auscultation bilaterally Cardio Rate: regular rate GI Inspection: Yes normal to inspection and No distended Palpation (GI): Soft to palpation, not firm, nontender and No hepatosplenomegaly present Auscultation: normal bowel sounds General: Yes no CVA tenderness Back/Spine/Pelvis Back: no CVA tenderness Skin General skin exam: elasticity normal, turgor normal and dry skin Neuro General: patient oriented x3 Psych Appearance: grossly normal Mental Status: mental status grossly normal Assessment & Plan Assessment & Plan (1) Screen for colon cancer: Code(s): Z12.11 - Encounter for screening for malignant neoplasm of colon Plan Patient denies any GI, cardiac or respiratory symptoms.? Denies any issues with anesthesia in the past.? Denies any history of sleep apnea.? No history infectious diseases in the past or present.? Not on any anticoagulation therapy.? No family or personal history of colon cancer or polyps.? Patient denies melena, hematochezia, unintentional weight loss or ribbon like stools.? Discussed at length the pre-procedure,? prep, diet & medications as well as what to expect prior, during and after the procedure.?? Stressed the importance of good bowel prep.? Recommended the use of Vaseline or Calmoseptine OTC & baby wipes with bowel movements to promote comfort.? ?Patient verbalizes understanding and agrees to plan of care.? She was given the opportunity to ask questions and all questions answered.? We will see her after the procedure.? Medications: New bisacodyl (Dulcolax (bisacodyl)) take 4 tabs at noon the day before your colonoscopy 20 mg (4 x 5 mg) PO ONCE 4 tabs 0RF constipation 1 day Z12.11 - Encounter for screening for malignant neoplasm of colon polyethylene glycol 3350 (Miralax) As directed by gastroenterology department at [facility] 238 grams PO ONCE 238 grams 0RF Z12.11 - Encounter for screening for malignant neoplasm of colon Coding Level of Care Code New Pt Level 3 (79199) Diagnoses Screen for colon cancer Z12.11 Time Spent (min) 40 Comment 30 minutes spent with patient and additional 10 minutes spent reviewing her records
[2025-02-05 10:08] VITALS: BP 106/70; PULSE 80; O2SAT 100; BMI 27.4
--- OUTSIDE RECORDS SUMMARY | 2025-02-05 11:13 | XMS_ITS | Clinical Summary ---
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 Role Phone Irvin Mensah MD Primary [...] years ago Hospitalization: - ER:- Pmhx:- [facility] All: - Meds: motrin 800mg Menarche: 11yrs LMP: 09/13/24 A1 Encounter for screening mamm ogram for malignant neoplasm of breast 09/27/2024 Screening for colon cancer 09/27/2024 Assessment & Plan (09/27/2024 10:17 AM EDT): Will place referral Encounters Date Type Department Care Team Description 01/18/2025 Telephone [facility] [address] [place] [phone] Irvin Mensah MD Results 12/14/2024 Telephone [facility] [address] [place] [address] Irvin Mensah MD from Last 3 Months Immunizations Immunization Administration [...] 74 10/30/2024 9:15 AM EDT Temperature 37.1 C (98.8 F) 10/30/2024 9:15 AM EDT Respiratory Rate 20 10/30/2024 9:15 AM EDT Oxygen Saturation 98% 10/30/2024 9:15 AM EDT Inhaled Oxygen Concentration - - Weight 67.4 kg (148 lb 9.6 oz) 10/30/2024 9:15 A M EDT Height 156 cm (5' 1.42 ) 10/30/2024 9:15 AM EDT Body Mass Index 27.7 10/30/2024 9:15 AM EDT Plan of Treatment Health Maintenance Due Date Last Done Comments CT Colonography 1980 Colonoscopy 1979 Colorectal Cancer Screening 1980 FIT DNA/Cologuard 1980 FIT 1979 FOBT 1980 Sigmoidoscopy 1980 Disability Screening 1980 Family Planning (PISQ) 12/12/1994 HPV Vaccines (1 - 3-dose series) 12/12/1994 Hepatitis B Vaccines (1 of 3 - 19+ 3-dose series) 12/12/1998 COVID-19 Vaccine ( - 2023-2 5 season) 2025 Influenza Vaccine (#1) 2025 Alcohol/Substance Use Screening 09/27/2025 09/27/2024 Depression Screening 09/27/2025 09/27/2024, 09/27/2024 SDOH Screening 09/27/2025 09/27/2024 Tobacco Screening 10/30/2025 10/30/2024 Mammogram 11/01/2026 11/01/2024 Cervical Cancer Screening 10/30/2029 HPV/Cotest 10/30/2029 10/30/2024 Pap Smear 10/30/2029 10/30/2024 Zoster Vaccines (1 [...] Years) and At-Risk Patients (6 to 49) Years Aged Out No longer eligible b ased [...] screening mammogram for malignant neoplasm of breast HPV DNA, LOW/HIGH RISK Routine 9:42 AM EDT Cervical cancer screening PAP SMEAR Routine 10/30/2024 9:42 AM EDT Cervical cancer screening HEPATITIS C AB W/REFL TO HCV RNA, QN, PCR Routine 09/27/2024 10:47 AM EDT Encounter for medical examination to establish care HIV 1/2 ANTIGEN/ANTIBODY, FOURTH GENERATION W/RFL Routine 09/27/2024 10:47 AM EDT Encounter for medical examination to establish care from Last 3 Months or Most Recently Relevant to Health Maintenance Results * BI Mammogram Screening Tomosynthesis Bilateral (11/01/2024 11:55 AM EDT) Anatomical Region Laterality Modality Breast Bilateral Mammography 11/01/2024 11:5 5 AM EDT Narrative 11/09/2024 4:28 PM EDT [address] 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 The presence of HPV in the female genital tract isassociated with a number of diseases, including cervicalcarcinoma. The HPV DNA high risk pool tests for HPV 31, 33,35, 39, 45, 51, 52, 56, 58, 59, 66 and 68. The testing forHPV 16 and 18 genotypes has also been performed. A positiveresult indicates detection of nucleic acid sequences fromone or more subtypes, whereas a negative result indicatessuch sequences were not detected. Pap Vial 10/30/2024 9:42 AM EDT 10/31/2024 9:00 AM EDT us Mandie Gordon MD LAB BLOOD ORDERABLES Final Re sult [facility] [address] [place] [phone] * Pap Smear (10/30/2024 9:42 AM EDT) Swab 10/30/2024 9:42 AM EDT 10/31/2024 9:00 AM EDT Narrative [facility] - 11/02/2024 10:28 AM EDT ----- ------- Name: Aileen Wallace Age/Sex: 43/F : 1980 Unit#: [id number] Attend Dr: Mandie Gordon MD Re10/30/24 Status: DEP REF Location: HO.CHCLNP Disch: ----- ------- SPEC : [id number] RECD: 10/31/24 STATUS: PEYTON GREWAL NUM: [id number] PAM: 10/30/[address] [facility] [address]: Mandie Gordon MD ENTERED: 10/31/24 SP TYPE: Pap Smr OTHR DR: ORDERED: Pap Smear Interpretation Satisfactory for evaluation. Negative for intraepithelial lesion or malignancy. HPV High Risk: Negative HPV Genotyping 16: Negative HPV Genotyping 18: Negative Clinical Information LMP: 10/09/2024 Previous PAP test: Unknown date/findings Material Received ThinPrep-Cervical PAP Disclaimer As of March 28, 2024, the technical services to include automated prescreening performed by the ThinPrep Imaging System, PAP screening and HPV testing will be performed at [facility] (CLIA #[id number]), [address] [place] [address]. Testing for HPV was performed using the Meg LINDA 6800 system. The presence of HPV in the female genital tract is associated with a number of diseases, including cervical carcinoma. The HPV DNA high risk pool tests for HPV 31, 33, 35, 39, 45, 51, 52, 56, 58, 59, 66 and 68. The testing for HPV 16 and 18 genotypes has also been performed. A positive result indicates detection of nucleic acid sequences from one or more subtypes, whereas a negative result indicates such sequences were not detected. All professional services are performed by [facility] ([address] [place] [address], [place] [address]; ; CLIA #[id number]). The PAP Test is a screening procedure with the inherent possibility of both false negative and false positive results. Results should be interpreted in the context of historic and current clinical findings. Reliability of the PAP Test is enhanced by performing the test on a regular repetitive basis. ----- ------- Signed (signature on file) MIRZA Edge ([facility]) 11/02/24 1028 ----- ------- END OF REPORT Mandie Gordon MD LAB CYTOLOGY ORDERABLES Final Result Performing Organization Address [facility] de Phone Number [facility] [address] [place] [address] [phone] * Hepatitis C Antibody with Reflex to HCV, RNA, Quantitative, Real-Time PCR (09/27/2024 10:47 AM EDT) Hepatitis C Antibody Nonreactive Nonreactive [facility] Comment:Antibodies to HCV no t detected; does not exclude early acuteHCV infection. Blood Venous blood specimen / Unknown 09/27/2024 10:47 AM EDT 09/27/2024 2:06 PM EDT Irvin Goel MD LAB BLOOD ORDERABL ES Final Result Performing Organization Address [facility]/[employer] de Phone Number [facility] [address] [place] [address] [phone] * HIV-1/2 Antigen and Antibodies, Fourth Generation, with Reflexes (09/27/2024 10:47 AM EDT) HIV AB/AG Nonreactive Nonreactive [facility] Comment:HIV-1 p24 Ag and/or HIV-1/HIV-2 Ab not detected.A test result that is nonreactive does not exclude thepossibility of exposure to or infection with HIV-1 and/orHIV-2. Nonreactive results in this assay for individualswith prior exposure to HIV-1 and/or HIV-2 may be due toantigen and antibody levels that are below the limit ofdetection of this assay.The Ardian HIV Ag/Ab Combo assay result andsupplemental assay results should be interpreted inconjunction with the patient's clinical presentation,history and other laboratory results. If the results areinconsistent with clinical evidence, additional testing issuggested to confirm the result. 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
== END 2025-02-05 10:41 | disposition home or self-care (01) ==
LOC: HO.HGI 09:55
PROVIDERS: PCP Internal Medicine; Visit Provider Nurse Practitioner Family
DX: Z01.818 Encounter for other preprocedural examination (principal); Z12.11 Encounter for screening for malignant neoplasm of colon
CPT/HCPCS: 99203

== ENCOUNTER → 2025-02-05 09:54 | Outpatient (BNVA) | payer MEDICAID, SELFPAY | PROVIDERS: PCP Internal Medicine; Visit Provider Nurse Practitioner Family | DX: Z01.818 Encounter for other preprocedural examination (principal) | CPT/HCPCS: 99212 ==

== ENCOUNTER 2025-02-27 09:31 | Outpatient (AMB) | payer MEDICAID, SELFPAY ==
--- NOTE | 2025-02-27 09:35 | MHC.OFFVIS ---
Vital Signs 02/27/25 09:37 Height 5 ft 2 in Weight 150 lb BMI 27.4 Handedness Right Intake Visit Reasons: new prob - B/L CTS Intake Note: Aileen is a 44 year old right hand dominant female who presents today for a new problem visit for evaluation of her bilateral upper extremities status post EMG/NCS done on 11/13/24. Patient reports her numbness, tingling and pain come and go. She reports she has the most pain on days it is cold causing her to barely be able to move her fingers and wrist. Expresses she can not hold things in the left hand for too long due to weakness, this occasionally causes her to drop things. Squeezing, gripping and grasping have become difficult. She has tried sleeves at night, some days they help her and others she has to remove them in bed due to them aggravating her symptoms. Motrin gives her mild and short relief. Her last time in office Kavita Patten prescribed her diclofenac sodium and physical therapy. She was under the impression today's visit was physical therapy. Concerned because therapy has not called her. Patient would like to discuss results and discuss best treatment. 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 Otherwise, no significant abnormality noted. Laundry Or Dry Cleaners Counter Clerk Required: Yes Laundry Or Dry Cleaners Counter Clerk Language: Communications Executive Services: Laundry Or Dry Cleaners Counter Clerk Present (ipad) Laundry Or Dry Cleaners Counter Clerk Name: [id number] Allergies No Known Allergies Allergy (Verified 02/27/25 09:46) HPI HPI new prob - B/L CTS: Details: Aileen is a 44 year old right hand dominant female who presents today for a new problem visit for evaluation of her bilateral upper extremities status post EMG/NCS done on 11/13/24. Patient reports her numbness, tingling and pain come and go. She reports she has the most pain on days it is cold causing her to barely be able to move her fingers and wrist. Expresses she can not hold things in the left hand for too long due to weakness, this occasionally causes her to drop things. Squeezing, gripping and grasping have become difficult. She has tried sleeves at night, some days they help her and others she has to remove them in bed due to them aggravating her symptoms. Motrin gives her mild and short relief. Her last time in office Kavita Patten prescribed her diclofenac sodium and physical therapy. She was under the impression today's visit was physical therapy. Concerned because therapy has not called her. Patient would like to discuss results and discuss best treatment. 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 Otherwise, no significant abnormality noted. [facility] Social History Alcohol intake: never Patient Tobacco Use Status: Never used Tobacco Current occupational status: employed Current occupation: [employer]/ right hand dominant Review of Systems Const All systems reviewed & are unremarkable except as noted in HPI and below Physical Exam Vital Signs: BMI result Body Mass Index 27.4 Extrem Other: Neuro: Normal sensation of the tips of all digits of bilateral hands in the office today No thenar or intrinsic wasting. Good APB muscle firing and good finger cross. Vascular: Capillary refill brisk. ROM: Patient can make a fist and extend all their digits. Skin: No lacerations or abrasions noted. General: No ecchymosis. No erythema or evidence of infection. Assessment & Plan Assessment & Plan (1) Bilateral carpal tunnel syndrome: Code(s): G56.03 - Carpal tunnel syndrome, bilateral upper limbs Category: Medical Plan 1. Bilateral carpal tunnel syndrome Symptoms intermittent, daily, worse at night Patient is educated about this condition Patient is educated about the typical treatment course At this time, patient states that she will require a few weeks to discuss surgical intervention with her job and family to determine if this is an appropriate course for her at this time Therefore, patient is booked for an appointment to discuss a right carpal tunnel release with me in 4-6 weeks to give her time to discuss with her job and family Patient understands this and is amenable to this plan Follow-up at that time, sooner with any acute concerns Coding Level of Care Code Est Pt Level 3 (71491) Diagnoses Bilateral carpal tunnel syndrome G56.03
[2025-02-27 09:37] VITALS: BMI 27.4
--- OUTSIDE RECORDS SUMMARY | 2025-02-27 11:24 | XMS_ITS | Clinical Summary ---
Author Organization [employer] Address [address] [place] [address] [address] [place] [address] Care Team Providers Care Learning Coach Name Role Phone Irvin Mensah MD Primary [...] years ago Hospitalization: - ER:- Pmhx:- [facility] All: - Meds: motrin 800mg Menarche: 11yrs LMP: 09/13/24 A1 Encounter for screening mamm ogram for malignant neoplasm of breast 09/27/2024 Screening for colon cancer 09/27/2024 Assessment & Plan (09/27/2024 10:17 AM EDT): Will place referral Encounters Date Type Department Care Team Description 01/18/[address] [facility] MEDICINE [address] [place] [phone] Irvin Mensah MD Results 12/14/2024 Telephone [facility] [address] [place] [address] Irvin Mensah MD from Last 3 Months [...] AM EDT Narrative 11/09/2024 4:28 PM EDT [address] [place] [address] Mammography Report Signed Patient: Aileen Wallace MR#: [id number] : 1980 Acct:[id number] Age/Sex: 43 / F ADM Date: 11/01/24 Loc: HO.MAMMO Attending Dr: Irvin Goel MD Ordering Physician: Irvin Mensah MD Res ults: 1Negative Date of Service: 11/01/24 Follow Up: 1 Year From Orig inal Mammogram Procedure(s): MM tomosynthesis screening BI Accession Number(s): [id number] cc: Irvin Mensah MD EXAMINATION: MM SCREENING [...] 11/09/24 1626 DD/ 1155 TD/TT: 11/01/24 1208 Mobile Sales Technician: Procedure Note Donotuseinterpreter, Image - 11/09/[address] [place] [address] Mammography Report Signed Patient: Aileen Wallace#: M [id number] : 1980Acct:[id number] Age/Sex: 43 / FADM Date: 11/01/24 Loc: HO.MAMMO Attending Dr: Irvin Goel MD Ordering Physician: Irvin Mensah ults: 1Negative Date of Service: 11/01/24Follow Up: 1 Year From Orig inal Mammogram Procedure(s): MM tomosynthesis screening BI Accession Number(s): [id number] cc: Irvin Mensah MD EXAMINATION: MM SCREENING [...] 11/09/24 1626 DD/ 1155 TD/TT: 11/01/24 1208 Mobile Sales Technician: us Irvin Goel MD IMG BI PROCEDURES Final Result * HPV High Risk with Reflex to Subtypes (10/30/2024 9:42 AM EDT) HPV High Risk Negative Negative [facility] HPV Genotype 16 Negative Negative [facility] HPV Genotype 18 Negative Negative [facility] Comment:HPV testing performe d at [facility] (CLIA#[id number]), [address] [place] [address].Testing for HPV was performed using the Meg [...] MD LAB BLOOD ORDERABLES Final Re sult [facility] [address] [place] [phone] * Pap Smear (10/30/2024 9:42 AM EDT) Swab 10/30/2024 9:42 AM EDT 10/31/2024 9:00 AM EDT Narrative [facility] - 11/02/2024 10:28 AM EDT ----- ------- Name: Aileen Wallace Age/Sex: 43/F : 1980 Unit#: [id number] Attend Dr: Mandie Gordon MD Re10/30/24 Status: DEP REF Location: HO.CHCLNP Disch: ----- ------- SPEC : [id number] RECD: 10/31/24 STATUS: PEYTON GREWAL NUM: [id number] PAM: 10/30/[address] [facility] [address]: Mandie Gordon [...] and HPV testing will be performed at [facility] (CLIA #[id number]), [address] [place] [address]. Testing for HPV was performed using the [...] detected. All professional services are performed by [facility] ([address] [place] [address], [place] [address]; ; CLIA #[id number]). The PAP Test is a screening procedure with the inherent possibility of both false negative and false positive results. Results should be interpreted in the context of historic and current clinical findings. Reliability of the PAP Test is enhanced by performing the test on a regular repetitive basis. ----- ------- Signed (signature on file) MIRZA Edge ([facility]) 11/02/24 1028 ----- ------- END OF REPORT Mandie Gordon MD LAB CYTOLOGY ORDERABLES Final Result Performing Organization Address [facility] de Phone Number [facility] [address] [place] [address] [phone] * Hepatitis C Antibody with Reflex to HCV, RNA, Quantitative, Real-Time PCR (09/27/2024 10:47 AM EDT) Hepatitis C Antibody Nonreactive Nonreactive [facility] Comment:Antibodies to HCV no t detected; does not exclude early acuteHCV infection. Blood Venous blood specimen / Unknown 09/27/2024 10:47 AM EDT 09/27/2024 2:06 PM EDT Irvin Goel MD LAB BLOOD ORDERABL ES Final Result Performing Organization Address [facility] Co de Phone Number [facility] [address] [place] [address] [phone] * HIV-1/2 Antigen and Antibodies, Fourth Generation, with Reflexes (09/27/2024 10:47 AM EDT) HIV AB/AG Nonreactive Nonreactive [facility] Comment:HIV-1 p24 Ag and/or HIV-1/HIV-2 Ab not detected.A test result that is nonreactive does not exclude thepossibility of exposure to or infection with HIV-1 and/orHIV-2. Nonreactive results in this assay for individualswith prior exposure to HIV-1 and/or HIV-2 may be due toantigen and antibody levels that are below the limit ofdetection of this assay.The [employer] HIV Ag/Ab Combo assay result andsupplemental assay results should be interpreted inconjunction with the patient's clinical presentation,history and other laboratory results. If the results areinconsistent with clinical evidence, additional testing issuggested to confirm the result. Blood Venous blood specimen / Unknown 09/27/2024 10:47 AM EDT 09/27/2024 2:06 PM EDT us Irvin Goel MD LAB BLOOD ORDERABL ES Final Result [facility] [address] [place] [phone] from Last 3 Months or Most Recently Relevant to Health Maintenance [place] [address] [place] [address] C3 Care Teams Learning Coach Relationship Specialty Start Date End Date Irvin Mensah MD [address] [place] [phone] PCP - General Internal Medicine 09/27/24
== END 2025-02-27 10:08 | disposition home or self-care (01) ==
LOC: HO.HOS 09:31
PROVIDERS: PCP Internal Medicine
DX: G56.03 Carpal tunnel syndrome, bilateral upper limbs (principal)
CPT/HCPCS: 99213

== ENCOUNTER → 2025-02-27 09:31 | Outpatient (BNVA) | payer MEDICAID, SELFPAY | PROVIDERS: PCP Internal Medicine | DX: G56.03 Carpal tunnel syndrome, bilateral upper limbs (principal) | CPT/HCPCS: 99212 ==

== ENCOUNTER 2025-04-04 10:01 | Day surgery (SDC) | payer MEDICAID, SELFPAY ==
--- OUTSIDE RECORDS SUMMARY | 2025-03-06 09:37 | XMS_ITS | Clinical Summary ---
Author Organization [employer] Address [address] [place] [address] 7[address] [place] [address] Care Team Providers Care Career Services Representative Name Role Phone Irvin Mensah MD Primary [...] years ago Hospitalization: - ER:- [facility] [place] All: - Meds: motrin 800mg Menarche: 11yrs LMP: 09/13/24 A1 Encounter for screening mamm ogram for malignant neoplasm of breast 09/27/2024 Screening for colon cancer 09/27/2024 Assessment & Plan (09/27/2024 10:17 AM EDT): Will place referral Encounters Date Type Department Care Team Description 01/18/2025 Telephone [facility] MEDICINE [address] [place] [phone] Irvin Mensah MD Results 12/14/2024 Telephone [facility] [address] [place] [address] Irvin Mensah MD from Last 3 Months [...] AM EDT Narrative 11/09/2024 4:28 PM EDT [address] [place] [address] Mammography Report Signed Patient: Aileen Wallace MR#: [id number] : 1980 Acct:[id number] Age/Sex: 43 / F ADM Date: 11/01/24 Loc: HO.MAMMO Attending Dr: Irvin Goel MD Ordering Physician: Irvin Mensah MD Res ults: 1Negative Date of Service: 11/01/24 Follow Up: 1 Year From Orig inal Mammogram Procedure(s): MM tomosynthesis screening BI Accession Number(s): [id number] cc: Irvin Mensah MD EXAMINATION: MM SCREENING [...] 11/09/24 1626 DD/ 1155 TD/TT: 11/01/24 1208 Department Chair: Procedure Note Donotuseinterpreter, Image - 11/09/[address] [place] [address] Mammography Report Signed Patient: Aileen Wallace#: M [id number] : 1980Acct:[id number] Age/Sex: 43 / FADM Date: 11/01/24 Loc: HO.MAMMO Attending Dr: Irvin Goel MD Ordering Physician: Irvin Mensah ults: 1Negative Date of Service: 11/01/24Follow Up: 1 Year From Orig inal Mammogram Procedure(s): MM tomosynthesis screening BI Accession Number(s): [id number] cc: Irvin Mensah MD EXAMINATION: MM SCREENING [...] 11/09/24 1626 DD/ 1155 TD/TT: 11/01/24 1208 Department Chair: us Irvin Goel MD IMG BI PROCEDURES Final Result * HPV High Risk with Reflex to Subtypes (10/30/2024 9:42 AM EDT) HPV High Risk Negative Negative [facility] HPV Genotype 16 Negative Negative [facility] HPV Genotype 18 Negative Negative [facility] Comment:HPV testing performe d at [facility] (CLIA#[id number]), [address] [place] [address].Testing for HPV was performed using the Meg [...] MD LAB BLOOD ORDERABLES Final Re sult [facility] [address] [place] [phone] * Pap Smear (10/30/2024 9:42 AM EDT) Swab 10/30/2024 9:42 AM EDT 10/31/2024 9:00 AM EDT Narrative [facility] - 11/02/2024 10:28 AM EDT ----- ------- Name: Aileen Wallace Age/Sex: 43/F : 1980 Unit#: [id number] Attend Dr: Mandie Gordon MD Re10/30/24 Status: DEP REF Location: HO.CHCLNP Disch: ----- ------- SPEC : [id number] RECD: 10/31/24 STATUS: PEYTON GREWAL NUM: [id number] PAM: 10/30/[address] [facility] [address]: Mandie Gordon MD ENTERED: 10/31/24 SP [...] and HPV testing will be performed at [facility] (CLIA #[id number]), [address] [place] [address]. Testing for HPV was performed using the [...] detected. All professional services are performed by [facility] ([address] [place] [address], [place] [address]; ; CLIA #[id number]). The PAP Test is a screening procedure with the inherent possibility of both false negative and false positive results. Results should be interpreted in the context of historic and current clinical findings. Reliability of the PAP Test is enhanced by performing the test on a regular repetitive basis. ----- ------- Signed (signature on file) MIRZA Edge ([facility]) 11/02/24 1028 ----- ------- END OF REPORT Mandie Gordon MD LAB CYTOLOGY ORDERABLES Final Result Performing Organization Address [facility] de Phone Number [facility] [address] [place] [address] [phone] * Hepatitis C Antibody with Reflex to HCV, RNA, Quantitative, Real-Time PCR (09/27/2024 10:47 AM EDT) Hepatitis C Antibody Nonreactive Nonreactive [facility] Comment:Antibodies to HCV no t detected; does not exclude early acuteHCV infection. Blood Venous blood specimen / Unknown 09/27/2024 10:47 AM EDT 09/27/2024 2:06 PM EDT Irvin Goel MD LAB BLOOD ORDERABL ES Final Result Performing Organization Address [facility] Co de Phone Number [facility] [address] [place] [address] [phone] * HIV-1/2 Antigen and Antibodies, Fourth Generation, with Reflexes (09/27/2024 10:47 AM EDT) HIV AB/AG Nonreactive Nonreactive [facility] Comment:HIV-1 p24 Ag and/or HIV-1/HIV-2 Ab not detected.A test result that is nonreactive does not exclude thepossibility of exposure to or infection with HIV-1 and/orHIV-2. Nonreactive results in this assay for individualswith prior exposure to HIV-1 and/or HIV-2 may be due toantigen and antibody levels that are below the limit ofdetection of this assay.The [employer] HIV Ag/Ab Combo assay result andsupplemental assay results should be interpreted inconjunction with the patient's clinical presentation,history and other laboratory results. If the results areinconsistent with clinical evidence, additional testing issuggested to confirm the result. Blood Venous blood specimen / Unknown 09/27/2024 10:47 AM EDT 09/27/2024 2:06 PM EDT us Irvin Goel MD LAB BLOOD ORDERABL ES Final Result [facility] [address] [place] [phone] from Last 3 Months or Most Recently Relevant to Health Maintenance [place] [address] [address] C3 Care Teams Career Services Representative Relationship Specialty Start Date End Date Irvin Mensah MD [address] [place] [phone] PCP - General Internal Medicine 09/27/24
--- NOTE | 2025-04-02 09:14 | HO.ANESPROP2 ---
Documented by User: Lana Lindsay NP 04/02/25 09:14 HPI - Anesthesia Eval Consult details Narrative: 44 yr old female for colonoscopy [facility] Active Problems Active Problems: All Active Problems Bilateral carpal tunnel syndrome (Acute) Lateral epicondylitis, left elbow (Acute) Medial epicondylitis, left elbow (Acute) Past Medical History Medical History Carpal tunnel syndrome, bilateral Social History Social History Alcohol intake: never Patient Tobacco Use Status: Never used Tobacco Use of substances other than those prescribed or required for medical reasons: No Are you DNR?: No Advance Directives: No Advance Directives Information Provided: Yes FDLMP: 04/04/2025 Current occupational status: employed 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 Meds Allergies Allergy/AdvReac Type Severity Reaction Status Date / Time No Known Allergies Allergy Verified 02/27/25 09:46 Documented by User: Spring Chavez MD 04/04/25 11:24 [facility] Past Medical History Medical History Carpal tunnel syndrome, bilateral Family History Family history of problems with anesthesia: No Surgical History History of Problems with Anesthesia: No Social History Social History Alcohol intake: never Patient Tobacco Use Status: Never used Tobacco Use of substances other than those prescribed or required for medical reasons: No Are you DNR?: No Advance Directives: No Advance Directives Information Provided: Yes FDLMP: 04/04/2025 Current occupational status: employed 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 Meds Allergies Allergy/AdvReac Type Severity Reaction Status Date / Time No Known Allergies Allergy Verified 02/27/25 09:46 Exam Airway Mallampati Class: II TM Dist: >3cm Neck ROM: Full Heart: rrr Lungs: cta Assessment and Plan Assessment Anesthesia Assessment: Anesthesia Plan Discussed and Chart Reviewed Final Anesthetic Review Family History of Problems with Anesthesia: No History of Problems with Anesthesia: No NPO: Yes ASA Class: I Final Preanesthetic Review: No Changes in Pt Med Stat, Meds/Allgs Chart Reviewed and Consent Obtained/Reviewed Patient Risk: Low Procedure Risk: Low Anesthetic Plan Anesthetic Plan: MAC: Disposition: Standard PACU
[2025-04-02 12:26] VITALS: BMI 27.4
[2025-04-04 11:05] VITALS: BMI 27.2
[2025-04-04 11:06] LABS: UPreg QC Valid YES
[2025-04-04 11:19] VITALS: BP 107/71; PULSE 66; RESP 16; TEMP 36.8; O2SAT 100
--- NOTE | 2025-04-04 11:27 | MHC.SHP ---
Pre-Procedural Eval Section A - 24 Hr Update-Section A only Date of Service: 04/04/25 Section B - Complete if H&P > 30 days Chief Complaint: screening Relevant Family History (Specify if Yes): No Present Medications: see Short Stay Collaborative assessment Medical History: No relevant PMH History of Previous Operations: No relevant previous surgery Allergies: Allergies Allergy/AdvReac Type Severity Reaction Status Date / Time No Known Allergies Allergy Verified 02/27/25 09:46 Review of Systems Review of Systems Comment: Ten point ROS negative Exam Exam Comment: Gen appear: No acute distress HEENT: no icterus Chest: No overt resp distress Abd: soft, nontender, nondistended Psych: Stable affect, answering questions appropriately Neuro: A/Ox3 noted to move all extremities spontaneously Ext: no peripheral edema Plan Diagnosis/Plan: Unchanged I have reviewed the history and physical and performed a pertinent physical examination on my patient. No changes have occurred unless specified. Time Spent With Patient Time: Total time managing care of this patient today ____ minutes.
[2025-04-04] MEDS: Lactated Ringers 1,000 ML 100 ML IVCONT (11:34)
[2025-04-04 12:58] VITALS: BP 104/39; PULSE 60; RESP 15; TEMP 36.3; O2SAT 97
[2025-04-04 13:03] VITALS: BP 104/50; PULSE 67; RESP 15; O2SAT 97
--- NOTE | 2025-04-04 13:05 | P.OPN-COLO_ITS ---
Colonoscopy Operative Note Operative Note Date of Service: 04/04/25 Narrative: Procedure: Colonoscopy Indication: Screening Endoscopist: Ariela Gandhi MD Anesthesia Provider: Violet Ricardo CRNA Anesthesia type: MAC Instrument: Olympus [id number]-H190L Consent: Indication, risks vs benefits, and alternatives were discussed with the patient who gave written informed consent to proceed. An looseleaf binder coverer was utilized to assist with the consent. EKG, pulse, pulse oximetry and blood pressure were monitored throughout the procedure. Please see anesthesia flowsheet. Procedure: The patient was brought to the procedure room and placed in the left lateral decubitus position. IV medications were administered by the anesthesia p rovider in attendance. A digital rectal exam was performed which was normal. A distal attachment cap was affixed to the tip of the colonoscope which was then inserted through the anus and advanced through the colon to the cecum at 75 cm,and terminal ileum. Appendiceal orifice and ileocecal valve were identified. Mucosa was carefully examined under high definition white light as the instrument was slowly withdrawn in a retrograde panoramic fashion. Retroflexion was performed in ascending colon and rectum. The procedure was not difficult. There were no immediate obvious complications. The quality of the prep was BBPS: 3+3+3 = adequate Withdrawal time 10 minutes. Limitations: No limitations. Findings: Mucosa: Normal to cecum and terminal ileum. Protruding lesions: * 1 sessile polyp of size 3 mm in descending colon. Cold snare polypectomy was performed. The polyp was completely removed and retrieved. * Medium internal hemorrhoids without stigmata of recent bleeding. Impression: 1. Normal colon and terminal ileum mucosa 2. Total of 1 polyp removed 3. Internal hemorrhoids Recommendations: - Follow path results. - Repeat colonoscopy in 7-10 years if polyp is hyperplastic or adenoma.
[2025-04-04 13:08] VITALS: BP 106/61
[2025-04-04 13:13] VITALS: BP 105/71; PULSE 61; RESP 12; TEMP 37.1; O2SAT 99
== END 2025-04-04 13:50 | disposition home or self-care (01) ==
PROVIDERS: Nurse Practitioner; PCP Internal Medicine; Visit Provider Internal Medicine
PROC: 0DJD8ZZ Inspection of Lower Intestinal Tract, Via Natural or Artificial Opening Endoscopic (ICD-10-PCS; CPT 45378; principal; 2025-04-04 12:30)
DX: Z12.11 Encounter for screening for malignant neoplasm of colon (principal); K64.8 Other hemorrhoids; K63.5 Polyp of colon
CPT/HCPCS: 45385; 81025; 88305; J2704

== ENCOUNTER → 2025-04-04 10:01 | Outpatient (BNV) | payer MEDICAID, SELFPAY | PROVIDERS: PCP Internal Medicine; Visit Provider Internal Medicine | DX: Z12.11 Encounter for screening for malignant neoplasm of colon (principal); K63.5 Polyp of colon; K64.8 Other hemorrhoids | CPT/HCPCS: 45385 ==

== ENCOUNTER 2025-06-01 18:54 | Emergency (ER) | payer MEDICAID, SELFPAY ==
--- NOTE | ~2025-06-01 | CT_ITS ---
CLINICAL HISTORY: biliary colic?? CT abdomen and pelvis with contrast Comparison: None provided Findings: The lung bases are clear. Stones seen in the gallbladder. There appears to be mild wall thickening of the gallbladder. No intrahepatic or extrahepatic biliary ductal dilatation. The liver, spleen, left adrenal gland and pancreas are unremarkable. Within the right adrenal gland there is a low-attenuation 1.8 cm nodule. Kidneys are normal size and there is no hydronephrosis. No bowel obstruction, pneumoperitoneum, or pneumatosis. 1 cm low-attenuation mass within the right uterine fundus, likely small fibroid. Adnexa are unremarkable. No ascites. Urinary bladder is normal. The bones are intact. IMPRESSION: 1. Suspect wall thickening of the gallbladder in the setting of cholelithiasis. Consider right upper quadrant ultrasound for further characterization. 2. 1.8 cm indeterminate nodule in the right adrenal gland, likely adrenal adenoma, but could be further evaluated with CT washout study if clinically indicated. This document has been electronically signed by: Gregorio Mcdaniels MD on 06/02/2025 01:05:51
--- NOTE | ~2025-06-01 | XR_ITS ---
CLINICAL HISTORY: pain 2 view chest x-ray Comparison: None provided Findings: No consolidation or effusion. Heart size is normal. No acute fracture. IMPRESSION: 1. No acute findings. This document has been electronically signed by: Gregorio Mcdaniels MD on 06/01/2025 19:33:59
--- NOTE | ~2025-06-01 | US_ITS ---
CLINICAL HISTORY: liver, GB, CBD --- Additional Notes or Special Instructions: pain RUQ US abdomen limited Comparison: CT/SR - CT ABDOMEN PELVIS W IV CON - 06/02/25 00:26 EST Findings: The liver is normal in size and echotexture. There is no intrahepatic bile duct dilatation. The common duct is 5 mm in diameter. The gallbladder is completely filled with stones. Gallbladder wall is normal in thickness measuring 3 mm. No pericholecystic fluid. There is no sonographic Herring sign. The main portal vein is antegrade. The right kidney is normal in appearance. No ascites. IMPRESSION: Gallbladder completely filled with stones without sonographic evidence of cholecystitis. This document has been electronically signed by: Gregorio Mcdaniels MD on 06/02/2025 02:33:30
--- NOTE | 2025-06-01 18:56 | ECG_ITS ---
Test Reason : cp Blood Pressure : */* mmHG Vent. Rate : 81 BPM Atrial Rate : 81 BPM P-R Int : 166 ms QRS Dur : 88 ms QT Int : 386 ms P-R-T Axes : 71 37 53 degrees QTcB Int : 448 ms Sinus rhythm with marked sinus arrhythmia Otherwise normal ECG No previous ECGs available Referred By: Nam Barth Electronically Signed By: RACHEAL ORTEGA MD
[2025-06-01 19:04] VITALS: BP 122/73; PULSE 93; RESP 18; TEMP 36.3; O2SAT 100; BMI 28.1
--- NOTE | 2025-06-01 19:08 | ED.GENADULT ---
HPI - General Adult General Chief complaint: Chest Pain Stated complaint: Chest pain Time Seen by Provider: 06/01/25 22:49 Source: patient Limitations: language barrier History of Present Illness ED Provider: Marilee Guthrie PA-C HPI narrative: 44-year-old female presents with epigastric discomfort prior to arrival. Pain over epigastric and right upper quadrant, is nonradiating, described as a ?tight pressure?. When the pain was presents, it becomes severe, the patient states she ?feels hot and lightheaded, with nausea . The pain resolved on its own. She is not sure if eating trigger symptoms. Patient states she has been having intermittent episodes over the past few months. Denies fever. Related Data Allergies Allergy/AdvReac Type Severity Reaction Status Date / Time No Known Allergies Allergy Verified 06/01/25 19:11 [facility] Past Medical History Attestation statement: The following information was validated with the patient. 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 Plan for cardiac workup Consultations Consultation #1: paging Dr. Olivas, recommends outpatient follow up and adhere to a low-fat diet Time: 03:00 Medications Administered Discontinued Medications Generic Name Dose Route Start Last Admin Trade Name Freq PRN Reason Stop Dose Admin Iohexol 85 ml 06/02/25 00:26 06/02/25 00:26 Iohexol 350 Mg/Ml 100 Ml Infus..Btl IV 06/02/25 00:27 85 ml ONCE ONE Administration Ketorolac Tromethamine 15 mg 06/02/25 03:41 06/02/25 03:49 Ketorolac Tromethamine 15 Mg/Ml Vial IVPUSH 06/02/25 03:42 15 mg ONCE ONE Administration Medical Decision Making Medical Decision Making [facility] Narrative: 44-year-old female presents with epigastric discomfort prior to arrival. Pain over epigastric and right upper quadrant, is nonradiating, described as a ?tight pressure?. When the pain was presents, it becomes severe, the patient states she ?feels hot and lightheaded, with nausea . The pain resolved on its own. She is not sure if eating trigger symptoms. Patient states she has been having intermittent episodes over the past few months. Denies fever. No relevant chronic issues History: Per patient I have considered the following differential diagnoses: Cholecystitis, biliary colic, GERD/gastritis, pancreatitis, atypical presentation for ACS Plan: ACS was considered, in addition to screening labs, cardiac enzyme EKG and CXR obtained, to note the patient has no risk factors for coronary artery disease, her heart score is 0. Given distribution of discomfort, I am considering underlying biliary versus gastric etiology as cause for symptoms. I am most concerned for biliary colic at this point, the patient has been having intermittent symptoms for months, and she has a new elevation in some of her LFTs. Obtaining a CT scan. At this point she is not having any pain or nausea. I have independently reviewed the following tests: Labs: No overall leukocytosis, left shift noted, not anemic, not , AST 229, ALT 116, the remainder of the liver function tests are within normal limits, lipase not elevated, viral panel neg, troponin negative EKG: Sinus rhythm with a marked sinus arrhythmia, rate 81, no ischemic changes, QTC 448 Chest x-ray:Findings: No consolidation or effusion. Heart size is normal. No acute fracture. IMPRESSION: 1. No acute findings. This document has been electr CT abdomen and pelvis: Ultrasound right upper quadrant:Findings: The liver is normal in size and echotexture. There is no intrahepatic bile duct dilatation. The common duct is 5 mm in diameter. The gallbladder is completely filled with stones. Gallbladder wall is normal in thickness measuring 3 mm. No pericholecystic fluid. There is no sonographic Herring sign. The main portal vein is antegrade. The right kidney is normal in appearance. No ascites............................................................ Obtaining an ultrasound, 1 of the radiology technicians is able to complete the study overnight IMPRESSION: Gallbladder completely filled with stones without sonographic evidence of cholecystitis. Differential Diagnosis Differential Diagnoses: The differential diagnosis associated with the presentation includes See [facility] Admission/Observation Consideration of admission/observation: Escalation of care including admission/observation considered Not applicable Lab Data [facility] Lab Attestation statement: I reviewed the patient's lab results. 06/01/25 19:53 06/01/25 19:53 Labs: Lab Results 06/01/25 Range/Units 19:53 WBC 9.5 (4.8-10.8) X10*3/uL RBC 4.53 (4.20-5.50) X10*6/uL Hgb 14.1 (12.0-16.0) g/dl Hct 41.8 (37.0-47.0) % MCV 92.3 (80.0-98.0) fL MCH 31.1 (27.0-33.0) pg MCHC 33.7 (31.0-35.0) g/dl RDW 13.2 (11.0-16.0) % Plt Count 304 (160-400) X10*3/uL MPV 10.1 (9.4-12.3) fL Immature Gran % (Auto) 0.4 (0.0-0.4) % Neut % (Auto) 73.2 H (45-73) % Lymph % (Auto) 19.6 L (20-40) % Trinity % (Auto) 4.8 (2-11) % Eos % (Auto) 1.5 (0-4) % Baso % (Auto) 0.5 (0-2) % Lymph # (Auto) 1.9 (1.2-4.9) X10*3/uL Trinity # (Auto) 0.5 (0.1-1.2) X10*3/uL Eos # (Auto) 0.1 (0.0-0.4) X10*3/uL Baso # (Auto) 0.1 (0.0-0.2) X10*3/uL Abs Immat Gran (auto) 0.04 H (0.00-0.03) X10*3/uL Absolute Neuts (auto) 7.0 (2.0-8.3) x10*3/uL Absolute Nucleated RBC 0.000 (0.0-0.012) X10*3/uL Nucleated RBC % (auto) 0.0 (0.0-0.2) /100WBC Sodium 141 (135-145) mmol/L Potassium 3.9 (3.3-5.1) mmol/L Chloride 110 H (96-108) mmol/L Carbon Dioxide 23 (22-29) mmol/L Anion Gap 12 (12-20) BUN 19 H (9-16) mg/dL Creatinine 0.67 (0.5-1.4) mg/dL Estim Creat Clear Calc 93.1 Estimated GFR > 60 Random Glucose 96 (60-115) mg/dL Calcium 9.0 (8.4-10.2) mg/dL Total Bilirubin 0.3 (0.0-1.0) mg/dL AST 229 H (5-31) U/L ALT 116 H (0-31) U/L Alkaline Phosphatase 90 (39-117) U/L Troponin I High Sens < 2.7 (<3.5-17.0) ng/L Total Protein 7.7 (6.5-8.0) g/dL Albumin 4.4 (3.5-5.0) g/dL Lipase 60 (8-78) U/L Beta HCG, Quant < 2 mIU/mL Influenza Type A (PCR) NEGATIVE (Negative) Influenza Type B (PCR) NEGATIVE (Negative) RSV RNA Qual (PCR) NEGATIVE (Negative) SARS-CoV-2 RNA (RT-PCR) NEGATIVE (Negative) Radiology Impression Discussion of test interpretation with radiology: I have reviewed the radiologist's reading. Discharge Plan Discharge Clinical Impression: Biliary colic Patient Disposition: Home, Self-Care Instructions: Biliary Colic (ED), Gallstones (ED) Additional Instructions: Your discomfort is secondary to biliary colic. Your gallbladder is full of gallstones. See home care instructions. You need to follow up with the surgeon, call [facility] to schedule an appointment. Moving forward, you need to eat a strict low-fat diet, and eat small more frequent meals throughout the day. Doing so will help to prevent pain and nausea. Return precautions for the onset of severe constant upper abdominal pain, intractable nausea vomiting or fever. If you develop any of these symptoms, seek medical attention. Referrals: Marlo Olivas MD [Physician, General Surgery] Referral Note: biliary colic Interventions: ED Discharge Assessment Last Done: 06/02/25 04:14 Discharge Date/Time: 06/02/25 04:15 Print Language: [place]
[2025-06-01 19:58] LABS: MANUAL DIFF FLAG NO
[2025-06-01 19:59] LABS: Hematocrit 41.8 % (37.0-47.0); Hemoglobin 14.1 g/dl (12.0-16.0); Imm Gran Abs Auto 0.04 X10*3/uL (0.00-0.03); Imm Gran Pct Auto 0.4 % (0.0-0.4); Lymphocytes Absolute Auto 1.9 X10*3/uL (1.2-4.9); Mean Corpuscular HGB Conc 33.7 g/dl (31.0-35.0); Mean Corpuscular Hemoglobin 31.1 pg (27.0-33.0); Mean Corpuscular Volume 92.3 fL (80.0-98.0); NRBC Abs Auto 0.000 X10*3/uL (0.0-0.012); NRBC Pct Auto 0.0 /100WBC (0.0-0.2); Platelet Count 304 X10*3/uL (160-400); Red Blood Count 4.53 X10*6/uL (4.20-5.50); White Blood Count 9.5 X10*3/uL (4.8-10.8)
[2025-06-01 20:18] LABS: Alanine Aminotransferase 116 U/L (0-31); Albumin Level 4.4 g/dL (3.5-5.0); Alkaline Phosphatase 90 U/L (39-117); Anion Gap 12 (12-20); Aspartate Amino Transferase 229 U/L (5-31); Blood Urea Nitrogen 19 mg/dL (9-16); Calcium 9.0 mg/dL (8.4-10.2); Carbon Dioxide 23 mmol/L (22-29); Chloride 110 mmol/L (96-108); Creatinine Clr Calc Pharmacy 93.1; Estimated Glomerular Filt Rate > 60; Lipase 60 U/L (8-78); Potassium 3.9 mmol/L (3.3-5.1); Sodium 141 mmol/L (135-145); Total Protein 7.7 g/dL (6.5-8.0)
[2025-06-01 20:22] LABS: Troponin-I High Sensitivity < 2.7 ng/L (<3.5-17.0)
[2025-06-01 20:35] LABS: Resp Syncy Virus RNA Qual PCR NEGATIVE (Negative); SARS COV2 PCR INHOUSE NEGATIVE (Negative)
--- OUTSIDE RECORDS SUMMARY | 2025-06-01 22:29 | XMS_ITS | Clinical Summary ---
Author Organization [employer] Address [address] [place] [address] [address] [place] [address] Care Team Providers Care Invas Tech Name Role Phone Irvin Mensah MD Primary [...] Encounters Date Type Department Care Team Description 06/01/2025 Orders Only [facility] External Provider, [facility] 04/04/2025 Orders Only GENERIC EXTERNAL DATA DEPARTMENT Provider, Generic External Data from Last 3 Months Immunizations Immunization Administration [...] - 19+ 3-dose series) 12/12/1998 COVID-19 Vaccine (2024-2 6 season) 2025 Influenza Vaccine (#1) 2025 Alcohol/Substance [...] Procedure Name Priority Date/Time Associated Diagnosis Comments HIGH SENSITIVITY TROPONIN I Routine 06/01/2025 7:53 PM EST HCG, TOTAL, QN Routine 06/01/2025 7:53 PM EST LIPASE Routine 06/01/2025 7:53 PM EST COMPREHENSIVE METABOLIC PANEL Routine 06/01/2025 7:53 PM EST CBC WITH AUTO DIFFERENTIAL Routine 06/01/2025 7:53 PM EST SARS COV2/INFLUENZA A/B AND RSV RNA QL NAAT Routine 06/01/2025 7:53 PM EST XR CHEST 2 VIEWS Routine 06/01/2025 7:33 PM EST HEMATOXYLIN AND EOSIN STAIN Routine 04/04/2025 12:44 PM EDT HCG, QL, URINE Routine 04/04/2025 10:52 AM EDT BI MAMMOGRAM SCREENING TOMOSYNTHESIS BILATERAL Routine 11/01/2024 [...] Recently Relevant to Health Maintenance Results * High Sensitivity Troponin I (06/01/2025 7:53 PM EST) TROPONIN I HIGH SENSITIVITY <2.7 <3.5 - 17.0 ng/L [facility] Comment:The Thapa high sens itivity Troponin-I results should beused in conjunction with other diagnostic information suchas ECG, clinical observations and information, and patientsymptoms to aid in the diagnosis of NV. 06/01/2025 7:53 PM EST 06/01/2025 7:57 PM EST us Generic External Data Provider LAB BLOOD ORDERAB LES Final Result [facility] [address] [place] [phone] * SARS-CoV-2 RNA, Influenza A/B, and RSV RNA, Ql NAAT (06/01/2025 7:53 PM EST) Influenza A PCR NEGATIVE Negative [facility] Influenza B PCR NEGATIVE Negative [facility] Resp Syncy Virus RNA Qual PCR NEGATIVE Negative [facility] SARS COV2 PCR NEGATIVE Negative [facility] Comment:All test results mus t be correlated with clinical findings.Negative results do not preclude SARS-CoV2, influenza Avirus, influenza B virus and/or RSV infectionand should not be used as the sole basis for treatment orother patient management decisions. Negative results must becombined with clinical observations, patient history, andepidemiological information.This test has not been evaluated for monitoring treatment ofinfection.This test has been authorized by the FDA under an EmergencyUse Authorization (EUA) for use by authorized laboratories.Testing performed on the documistic GeneXpert utilizingreal-time RT-PCR.All SARS CoV2 and positive influenza A/B results arereported to [facility]. 06/01/2025 7:53 PM EST 06/01/2025 7:57 PM EST us Generic External Data Provider LAB MICROBIOLOGY - GENERAL ORDERABLES Final Result [facility] [address] [place] [phone] * (ABNORMAL) CBC auto differential (06/01/2025 7:53 PM EST) White Blood Count 9.5 4.8 - 10.8 X10*3/uL [facility] Red Blood Count 4.53 4.20 - 5.50 X10*6/uL [facility] Hemoglobin 14.1 12.0 - 16.0 g/dl [facility] Hematocrit 41.8 37.0 - 47.0 % [facility] Mean Corpuscular Volume 92.3 80.0 - 98.0 fL [facility] Mean Corpuscular Hemoglobin 31.1 27.0 - 33.0 pg [facility] Mean Corpuscular HGB Conc 33.7 31.0 - 35.0 g/dl [facility] Red Cell Distribution Width 13.2 11.0 - 16.0 % [facility] Platelet Count 304 160 - 400 X10*3/uL [facility] Mean Platelet Volume 10.1 9.4 - 12.3 fL [facility] Neutrophils Percent Auto 73.2(H) 45 - 73 % [facility] Imm Gran Pct Auto 0.4 0.0 - 0.4 % [facility] Lymphocytes Percent Auto 19.6(L) 20 - 40 % [facility] Monocytes Percent Auto 4.8 2 - 11 % [facility] Eosinophils Percent Auto 1.5 0 - 4 % [facility] Basophils Percent Auto 0.5 0 - 2 % [facility] NRBC Pct Auto 0.0 0.0 - 0.2 /100WBC [facility] Neutrophils Absolute Auto 7.0 2.0 - 8.3 x10*3/uL [facility] Imm Gran Abs Auto 0.04(H) 0.00 - 0.03 X10*3/uL [facility] Lymphocytes Absolute Auto 1.9 1.2 - 4.9 X10*3/uL [facility] Monocytes Absolute Auto 0.5 0.1 - 1.2 X10*3/uL [facility] Eosinophils Absolute Auto 0.1 0.0 - 0.4 X10*3/uL [facility] Basophils Absolute Auto 0.1 0.0 - 0.2 X10*3/uL [facility] NRBC Abs Auto 0.000 0.0 - 0.012 X10*3/uL [facility] 06/01/2025 7:53 PM EST 06/01/2025 7:57 PM EST us Generic External Data Provider LAB BLOOD ORDERAB LES Final Result [facility] [address] [place] [phone] * hCG, Total, Quantitative (06/01/2025 7:53 PM EST) HCG Quantitative <2 mIU/mL [facility] Comment:Weeks post LMP Appro ximate hCG(Last Menstrual Period) Range (mIU/ml)3 - 4 weeks 9 - 1304 - 5 weeks 75 - 2,6005 - 6 weeks 850 - 20,8006 - 7 weeks 4000 - 100,2007 - 12 weeks 11,500 - 289,97825 - 16 weeks 18,300 - 137,76520 - 29 weeks (2nd trimester) 1,400 - 53,00122 - 41 weeks (3rd trimester) 940 - 60,000The Thapa B- hCG assay is used for the early detection ofpregnancy; it cannot be used to diagnose any conditionunrelated to . If a B-hCG level is not supportedby the clinical evidence, results should be confirmed by analternative method (qualitative urine hCG, for example). 06/01/2025 7:53 PM EST 06/01/2025 7:57 PM EST Generic External Data Provider LAB BLOOD ORDERAB LES Final Result Performing Organization Address [facility]/ZIP Co de Phone Number [facility] [address] [place] [phone] * Lipase (06/01/2025 7:53 PM EST) Lipase 60 8 - 78 U/L [facility] 06/01/2025 7:53 PM EST 06/01/2025 7:57 PM EST Generic External Data Provider LAB BLOOD ORDERAB LES Final Result Performing Organization Address [facility] Co de Phone Number [facility] [address] [place] [phone] * (ABNORMAL) Comprehensive Metabolic Panel (06/01/2025 7:53 PM EST) Sodium 141 135 - 145 mmol/L [facility] Potassium 3.9 3.3 - 5.1 mmol/L [facility] Chloride 110(H) 96 - 108 mmol/L [facility] Carbon Dioxide 23 22 - 29 mmol/L [facility] Anion Gap 12 12 - 20 [facility] Urea Nitrogen (BUN) 19(H) 9 - 16 mg/dL [facility] Creatinine, Serum 0.67 0.5 - 1.4 mg/dL [facility] Creatinine Clr Calc Pharmacy 93.1 [facility] Comment:Provided height and weight: 154.94 cm,67.4 kg.eGFR (calculated from the MDRD study equation) and eCrCl(calculated from the Cockcroft-Gault equation) are based ondifferent parameters and may not yield comparable results.If eCrCl result is absurd, please check patient'sheight/weight. Estimated Glomerular Filt Rate >60 [facility] Comment:Chronic Kidney Disea se: Estimated GFR < 60 mL/min/[id number] Kidney Disease: Estimated GFR < 15 mL/min/1.73m2 Glucose 96 60 - 115 mg/dL [facility] Calcium 9.0 8.4 - 10.2 mg/dL [facility] Bilirubin, Total 0.3 0.0 - 1.0 mg/dL [facility] Aspartate Amino Transferase 229(H) 5 - 31 U/L [facility] Alanine Aminotransferase 116(H) 0 - 31 U/L [facility] Total Protein 7.7 6.5 - 8.0 g/dL [facility] Albumin Level 4.4 3.5 - 5.0 g/dL [facility] Alkaline Phosphatase 90 39 - 117 U/L [facility] 06/01/2025 7:53 PM EST 06/01/2025 7:57 PM EST us Generic External Data Provider LAB BLOOD ORDERAB LES Final Result Performing Organization Address City/State/[facility] Co de Phone Number [facility] [address] [place] [phone] * XR Chest 2 Views (06/01/2025 7:33 PM EST) Anatomical Region Laterality Modality Chest Radiographic Janene ging 06/01/2025 7:33 PM EST Narrative 06/01/2025 7:35 PM EST [address] [address] XRay Report Signed Patient: Aileen Wallace MR#: M [id number] : 1980 Acct:[id number] Age/Sex: 44 / F ADM Date: 06/01/25 Loc: HO.ED Attending Dr: Ordering Physician: Nam Barth Date of Service: 06/01/25 Procedure(s): XR chest 2V Accession Number(s): [id number] cc: Irvin Mensah MD; Nam Barth Reason for Exam: pain CLINICAL HISTORY: pain 2 view chest x-ray Comparison: None provided Findings: No consolidation or effusion. Heart size is normal. No acute fracture. IMPRESSION: 1. No acute findings. This document has been electronically signed by: Gregorio Mcdaniels MD on 06/01/2025 19:33:59 Dictated By: Gregorio Mcdaniels MD Signed By: <Electronically signed by Gregorio Mcdaniels MD in OV> 06/01/251933 DD/ 32 TD/TT: 06/01/251932 Gis Software Engineer: Procedure Note Donotuseinterpreter, Image - 06/01/2025 [place] [address] XRay Report Signed Patient: Aileen Wallace#: M [id number] : 1980Acct:[id number] Age/Sex: 44 / FADM Date: 06/01/25 Loc: HO.ED Attending Dr: Ordering Physician: Nam Barth Date of Service: 06/01/25 Procedure(s): XR chest 2V Accession Number(s): [id number] cc: Irvin Mensah MD; Nam Barth Reason for Exam: pain CLINICAL HISTORY: pain 2 view chest x-ray Comparison: None provided Findings: No consolidation or effusion. Heart size is normal. No acute fracture. IMPRESSION: 1. No acute findings. This document has been electronically signed by: Gregorio Mcdaniels MD on 06/01/2025 19:33:59 Dictated By: Gregorio Mcdaniels MD Signed By: <Electronically signed by Gregorio Mcdaniels MD in OV> 06/01/251933 DD/ 32 TD/TT: 06/01/251932 Gis Software Engineer: [facility] External Provider IMG XR PROCEDURES Edited Result - Final * Hematoxylin and Eosin Stain (04/04/2025 12:44 PM EDT) 04/04/2025 12:4 4 PM EDT 04/04/2025 1:13 PM EDT [facility] - 04/05/2025 2:30 PM EDT ----- ------- Name: Murrayglynn MonahanAileen Age/Sex: 44/F : 1980 Unit#: [id number] Attend Dr: Ariela Gandhi MD Re04/04/25 Status: [facility] Location: HO.[facility] Disch: ----- ------- SPEC : [id number] RECD: 04/04/25 STATUS: PEYTON GREWAL NUM: [id number] PAM: 04/04/[address] [facility] [address]: Ariela Gandhi MD ENTERED: 04/04/25 SP TYPE: Surgical OTHR DR: Irvin Mensah MD ORDERED: HE Stain/3, Gross Micro L4 Diagnosis Colon, descending, polypectomy: Colonic mucosa with surface hyperplastic changes; negative for dysplasia. Clinical History Pre-Op Dx: Screening Post-Op Dx: Hemorrhoids, colon polyp Microscopic Description Microscopic sections reviewed. Material Received A. Descending colon polyp Gross Description Received in formalin labeled ascending colon polyp is a fragment of light-white soft tissue measuring 0.4 cm in greatest dimension which is wrapped in lens paper and entirely submitted for microscopic examination, 1 piece in cassette A. ([facility]) IHC S/NG Disclaimer NOTE: Unless otherwise stated, all tissue is formalin-fixed and paraffin-embedded. Some or all of the immunohistochemical tests reported herein may have been developed and their performance characteristics determined by [facility]. They have not been cleared or approved by the U.S. Food and Drug Administration (FDA). However, the FDA has determined that such clearance or approval is not necessary. This laboratory is certified under the Clinical Laboratory Improvement Amendments of 1988 (CLIA) as qualified to perform high complexity clinical laboratory testing. Copies To: Irvin Mensah MD [address] [address] CONTINUED ON NEXT PAGE ----- ------- Name: Trevor MonahanAileen Age/Sex: 44/F : 1980 Unit#: [id number] Attend Dr: Ariela Gandhi MD Re04/04/25 Status: [facility] Location: [facility] Disch: ----- ------- SPEC : [id number] RECD: 04/04/25 STATUS: PEYTON GREWAL NUM: [id number] PAM: 04/04/[address] [facility] [address]: Ariela Gandhi MD ENTERED: 04/04/25 SP TYPE: Surgical OTHR DR: Irvin Mensah MD ORDERED: HE Stain/3, Gross Micro L4 Copies To: (Continued) Ariela Gandhi MD [facility] [address] [place] [phone] [email or web address] ----- ------- Signed (signature on file) Nicole Real MD 04/05/25 1430 ----- ------- END OF REPORT [employer] External Data Provider LAB BLOOD ORDERAB LES Final Result Performing Organization Address [facility]/[employer] de Phone Number [facility] [address] [place] [phone] * HCG, Qualitative, Urine (04/04/2025 10:52 AM EDT) Pathologist [facility] Urine NEGATIVE NEGATIVE [facility] Comment:This test was develo ped to detect early . Falsenegative results may occur after the 5th - 7th week ofpregnancy when using this test method. If clinicallyindicated, consider a serum hCG. 04/04/2025 10:5 2 AM EDT 04/04/2025 10:58 AM EDT Generic External Data Provider LAB URINE ORDERAB LES Final Result Performing Organization Address [facility] Co de Phone Number [facility] [address] [place] [address] [phone] * BI Mammogram Screening Tomosynthesis Bilateral (11/01/2024 11:55 AM EDT) Anatomical Region Laterality Modality Breast Bilateral Mammography 11/01/2024 11:5 5 AM EDT Narrative 11/09/2024 4:28 PM EDT [facility] [address] [place] [address] Mammography Report Signed Patient: Aileen Wallace MR#: M [id number] : 1980 Acct:[id number] Age/Sex: 43 / F ADM Date: 11/01/24 Loc: HO.MAMMO Attending Dr: Irvin Goel MD Ordering Physician: Irvin Mensah MD Res ults: 1Negative Date of Service: 11/01/24 Follow Up: 1 Year From Orig ina Mammogram Procedure(s): MM tomosynthesis screening BI Accession Number(s): [id number] cc: Irvin Mensah MD EXAMINATION: MM SCREENING [...] DO 11/09/2024 04:26 PM EDT Dictated By: Tyminski,Debbie DO Signed By: <Electronically signed by Debbie Lebron DO in OV> 11/09/24 1626 DD/ 1155 TD/TT: 11/01/24 1208 Gis Software Engineer: Procedure Note Donotuseinterpreter, Image - 11/09/2024 [facility] [address] [place] [address] Mammography Report Signed Patient: Aileen Wallace#: M [id number] : 1980Acct:[id number] Age/Sex: 43 / FADM Date: 11/01/24 Loc: HO.MAMMO Attending Dr: Irvin Goel MD Ordering Physician: Irvin Mensah ults: 1Negative Date of Service: 11/01/24Follow Up: 1 Year From Orig inal Mammogram Procedure(s): MM tomosynthesis screening BI Accession Number(s): [id number] cc: Irvin Mensah MD EXAMINATION: MM SCREENING [...] 11/09/24 1626 DD/ 1155 TD/TT: 11/01/24 1208 Gis Software Engineer: us Irvin Goel MD IMG BI PROCEDURES Final Result * HPV High Risk with Reflex to Subtypes (10/30/2024 9:42 AM EDT) HPV High Risk Negative Negative [facility] HPV Genotype 16 Negative Negative [facility] HPV Genotype 18 Negative Negative [facility] Comment:HPV testing performe d at [facility] (CLIA#[id number]), [address] [place] [address].Testing for HPV was performed using the [employer]system. The presence of HPV in the female [...] MD LAB BLOOD ORDERABLES Final Re sult [facility] [address] [place] [phone] * Pap Smear (10/30/2024 9:42 AM EDT) Swab 10/30/2024 9:42 AM EDT 10/31/2024 9:00 AM EDT Narrative [facility] - 11/02/2024 10:28 AM EDT ----- ------- Name: Aileen Wallace Age/Sex: 43/F : 1980 Unit#: [id number] Attend Dr: Mandie Gordon MD Re10/30/24 Status: DEP REF Location: [facility] Disch: ----- ------- SPEC : [id number] RECD: 10/31/24 STATUS: PARRISHRomana CARMINA NUM: [id number] PAM: 10/30/[address] [facility] [address]: Mandie Gordon MD ENTERED: 10/31/24 SP TYPE: Pap Smr OT : ORDERED: Pap Smear Interpretation Satisfactory for evaluation. [...] and HPV testing will be performed at [facility] (CLIA #[id number]), [address] [place] [address]. Testing for HPV was performed using the [...] detected. All professional services are performed by [facility] ([address] [place] [address], [place] [address]; ; CLIA #[id number]). The PAP Test is a screening procedure with the inherent possibility of both false negative and false positive results. Results should be interpreted in the context of historic and current clinical findings. Reliability of the PAP Test is enhanced by performing the test on a regular repetitive basis. ----- ------- Signed (signature on file) MIRZA Edge ([facility]) 11/02/24 1028 ----- ------- END OF REPORT us Mandie Gordon MD LAB CYTOLOGY ORDERABLES Final Result [facility] [address] [place] [phone] * Hepatitis C Antibody with Reflex to HCV, RNA, Quantitative, Real-Time PCR (09/27/2024 10:47 AM EDT) Hepatitis C Antibody Nonreactive Nonreactive [facility] Comment:Antibodies to HCV no t detected; does not exclude early acuteHCV infection. Blood Venous blood specimen / Unknown 09/27/2024 10:47 AM EDT 09/27/2024 2:06 PM EDT Irvin oGel MD LAB BLOOD ORDERABL ES Final Result Performing Organization Address [facility] Co de Phone Number [facility] [address] [place] [phone] [phone] * HIV-1/2 Antigen and Antibodies, Fourth Generation, with Reflexes (09/27/2024 10:47 AM EDT) [facility] HIV AB/AG Nonreactive Nonreactive [facility] Comment:HIV-1 p24 Ag and/or HIV-1/HIV-2 Ab not detected.A test result that is nonreactive does not exclude thepossibility of exposure to or infection with HIV-1 and/orHIV-2. Nonreactive results in this assay for individualswith prior exposure to HIV-1 and/or HIV-2 may be due toantigen and antibody levels that are below the limit ofdetection of this assay.The KeyView HIV Ag/Ab Combo assay result andsupplemental assay results should be interpreted inconjunction with the patient's clinical presentation,history and other laboratory results. If the results areinconsistent with clinical evidence, additional testing issuggested to confirm the result. Blood Venous blood specimen / Unknown 09/27/2024 10:47 AM EDT 09/27/2024 2:06 PM EDT Irvin Goel MD LAB BLOOD ORDERABL ES Final Result Performing Organization Address [facility]/ZIP Co de Phone Number [facility] [address] [place] [phone] from Last 3 Months or Most Recently Relevant to Health Maintenance Insurance [facility] C3 Care Teams Invas Tech Relationship Specialty Start Date End Date ArciniegaIrvin Griffin MD [address] [place] [phone] PCP - General Internal Medicine 09/27/24
--- OUTSIDE RECORDS SUMMARY | 2025-06-01 22:29 | XMS_ITS | Encounter Summary ---
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 Name Role Phone Irvin Mensah MD Primary Care Prov ider Encounter Details Date Type Department Care Team ([facility] Contact Info) Description 06/01/2025 Orders Only [facility] External Provider, [facility] Social History Tobacco Use Types Packs/Day Years [...] on file documented as of this encounter Procedures Procedure Name Priority Date/Time Associated Diagnosis Comments HIGH SENSITIVITY TROPONIN I Routine 06/01/2025 7:53 PM EST SARS COV2/INFLUENZA A/B AND RSV RNA QL NAAT Routine 06/01/2025 7:53 PM EST CBC WITH AUTO DIFFERENTIAL Routine 06/01/2025 7:53 PM EST HCG, TOTAL, QN Routine 06/01/2025 7:53 PM EST LIPASE Routine 06/01/2025 7:53 PM EST COMPREHENSIVE METABOLIC PANEL Routine 06/01/2025 7:53 PM EST XR CHEST 2 VIEWS Routine 06/01/2025 7:33 PM EST documented in this encounter Results * SARS-CoV-2 RNA, Influenza A/B, and RSV RNA, Ql NAAT (06/01/2025 7:53 PM EST) Influenza A PCR NEGATIVE Negative [facility] Influenza B PCR NEGATIVE Negative [facility] Resp Syncy Virus RNA Qual PCR NEGATIVE Negative [facility] SARS COV2 PCR NEGATIVE Negative [facility] Comment:All test results mus t be [...] use by authorized laboratories.Testing performed on the [employer] GeneXpert utilizingreal-time RT-PCR.All SARS CoV2 and positive influenza A/B results arereported to [facility]. 06/01/2025 7:53 PM EST 06/01/2025 7:57 PM EST Generic External Data Provider LAB MICROBIOLOGY - GENERAL ORDERABLES Final Result Performing Organization Address [facility] Co de Phone Number [facility] [address] [place] [phone] * High Sensitivity Troponin I (06/01/2025 7:53 PM EST) Pathologist [facility] TROPONIN I HIGH SENSITIVITY <2.7 <3.5 - 17.0 ng/L [facility] Comment:The [place] high sens itivity Troponin-I results should beused in conjunction with other diagnostic information suchas ECG, clinical observations and information, and patientsymptoms to aid in the diagnosis of VT. 06/01/2025 7:53 PM EST 06/01/2025 7:57 PM EST Generic External Data Provider LAB BLOOD ORDERAB LES Final Result Performing Organization Address [facility] Co de Phone Number [facility] [address] [place] [phone] * hCG, Total, Quantitative (06/01/2025 7:53 PM EST) HCG Quantitative <2 mIU/mL [facility] Comment:Weeks post LMP Appro ximate hCG(Last Menstrual Period) Range (mIU/ml)3 - 4 weeks 9 - 1304 - 5 weeks 75 - 2,6005 - 6 weeks 850 - 20,8006 - 7 weeks 4000 - 100,2007 - 12 weeks 11,500 - 289,47624 - 16 weeks 18,300 - 137,44796 - 29 weeks (2nd trimester) 1,400 - 53,85692 - 41 weeks (3rd trimester) 940 - [...] ORDERAB LES Final Result Performing Organization Address [facility]/ZIP Co de Phone Number [facility] [address] [place] [phone] * Lipase (06/01/2025 7:53 PM EST) Pathologist [facility] Lipase 60 8 - 78 U/L [facility] 06/01/2025 7:53 PM EST 06/01/2025 7:57 PM EST Victor External Data Provider LAB BLOOD ORDERAB LES Final Result Performing Organization Address [facility] Phone Number [facility] [address] [place] [phone] * (ABNORMAL) Comprehensive Metabolic Panel (06/01/2025 7:53 PM EST) Sodium 141 135 - 145 mmol/L [facility] Potassium 3.9 3.3 - 5.1 mmol/L [facility] Chloride 110(H) 96 - 108 mmol/L [facility] Carbon Dioxide 23 22 - 29 mmol/L [facility] Anion Gap 12 12 - 20 [facility] Urea Nitrogen (BUN) 19(H) 9 - 16 mg/dL [facility] Creatinine, Serum 0.67 0.5 - 1.4 mg/dL [facility] Creatinine Clr Calc Pharmacy 93.1 [facility] Comment:Provided height and weight: 154.94 cm,67.4 kg.eGFR (calculated from the MDRD study equation) and eCrCl(calculated from the Cockcroft-Gault equation) are based ondifferent parameters and may not yield comparable results.If eCrCl result is absurd, please check patient'sheight/weight. Estimated Glomerular Filt Rate >60 [facility] Comment:Chronic Kidney Disea se: Estimated GFR < 60 mL/min/1.87x5Rioqen Kidney Disease: Estimated GFR < 15 mL/min/1.73m2 Glucose 96 60 - 115 mg/dL [facility] Calcium 9.0 8.4 - 10.2 mg/dL [facility] Bilirubin, Total 0.3 0.0 - 1.0 mg/dL [facility] Aspartate Amino Transferase 229(H) 5 - 31 U/L [facility] Alanine Aminotransferase 116(H) 0 - 31 U/L [facility] Total Protein 7.7 6.5 - 8.0 g/dL [facility] Albumin Level 4.4 3.5 - 5.0 g/dL [facility] Alkaline Phosphatase 90 39 - 117 U/L [facility] 06/01/2025 7:53 PM EST 06/01/2025 7:57 PM EST us Generic External Data Provider LAB BLOOD ORDERAB LES Final Result [facility] [address] [place] [address] [phone] * (ABNORMAL) CBC auto differential (06/01/2025 7:53 PM EST) White Blood Count 9.5 4.8 - 10.8 X10*3/uL [facility] Red Blood Count 4.53 4.20 - 5.50 X10*6/uL [facility] Hemoglobin 14.1 12.0 - 16.0 g/dl [facility] Hematocrit 41.8 37.0 - 47.0 % [facility] Mean Corpuscular Volume 92.3 80.0 - 98.0 fL [facility] Mean Corpuscular Hemoglobin 31.1 27.0 - 33.0 pg [facility] Mean Corpuscular HGB Conc 33.7 31.0 - 35.0 g/dl [facility] Red Cell Distribution Width 13.2 11.0 - 16.0 % [facility] Platelet Count 304 160 - 400 X10*3/uL [facility] Mean Platelet Volume 10.1 9.4 - 12.3 fL [facility] Neutrophils Percent Auto 73.2(H) 45 - 73 % [facility] Imm Gran Pct Auto 0.4 0.0 - 0.4 % [facility] Lymphocytes Percent Auto 19.6(L) 20 - 40 % [facility] Monocytes Percent Auto 4.8 2 - 11 % [facility] Eosinophils Percent Auto 1.5 0 - 4 % [facility] Basophils Percent Auto 0.5 0 - 2 % [facility] NRBC Pct Auto 0.0 0.0 - 0.2 /100WBC [facility] Neutrophils Absolute Auto 7.0 2.0 - 8.3 x10*3/uL [facility] Imm Gran Abs Auto 0.04(H) 0.00 - 0.03 X10*3/uL [facility] Lymphocytes Absolute Auto 1.9 1.2 - 4.9 X10*3/uL [facility] Monocytes Absolute Auto 0.5 0.1 - 1.2 X10*3/uL [facility] Eosinophils Absolute Auto 0.1 0.0 - 0.4 X10*3/uL [facility] Basophils Absolute Auto 0.1 0.0 - 0.2 X10*3/uL [facility] NRBC Abs Auto 0.000 0.0 - 0.012 X10*3/uL [facility] 06/01/2025 7:53 PM EST 06/01/2025 7:57 PM EST us Generic External Data Provider LAB BLOOD ORDERAB LES Final Result [facility] [address] [place] [phone] * XR Chest 2 Views (06/01/2025 7:33 PM EST) Anatomical Region Laterality Modality Chest Radiographic Janene ging 06/01/2025 7:33 PM EST Narrative 06/01/2025 7:35 PM EST [address] [address] XRay Report Signed Patient: Aileen Wallace MR#: [id number] : 1980 Acct:[id number] Age/Sex: 44 / F ADM Date: 06/01/25 Loc: HO.ED Attending Dr: Ordering Physician: Nam Barth Date of Service: 06/01/25 Procedure(s): XR chest 2V Accession Number(s): [id number] cc: Irvin Mensah MD; Nam Barth Reason [...] in OV> 06/01/251933 DD/ 32 TD/TT: 06/01/251932 Roll Up Helper: Procedure Note Donotuseinterpreter, Image - 06/01/[address] [address] XRay Report Signed Patient: Aileen WallaceMR#: [id number] : 1980Acct:[id number] Age/Sex: 44 / FADM Date: 06/01/25 Loc: HO.ED Attending Dr: Ordering Physician: Nam Barth Date of Service: 06/01/25 Procedure(s): XR chest 2V Accession Number(s): [id number] cc: Irvin Mensah MD; Nam Barth Reason [...] in OV> 06/01/251933 DD/ 32 TD/TT: 06/01/251932 Roll Up Helper: [facility] External Provider IMG XR PROCEDURES Edited Result - Final documented in this encounter Visit Diagnoses Not on filedocumented in this encounter Additional Health Concerns Assessment Noted Time PHQ-9 Depression Total Score: 0 09/28/19 9:57 AM EDT documented as of this encounter Care Teams Tab Cutting Machine Operator Relationship Specialty Start Date End Date Irvin Mensah MD [address] [place] [phone] PCP - General Internal Medicine 09/27/24 documented as of this encounter
[2025-06-02] MEDS: iohexoL 350 MG/ML 100 ML INFUS..BTL 85 ML IV (00:26)
[2025-06-02 03:07] VITALS: BP 117/65; PULSE 71; RESP 16; TEMP 36.8; O2SAT 100
[2025-06-02 04:14] VITALS: BP 117/65; PULSE 71; RESP 16; TEMP 36.8; O2SAT 100
== END 2025-06-02 04:15 | disposition home or self-care (01) ==
PROVIDERS: Physician Assistant; Emergency Provider Emergency Medicine; PCP Internal Medicine
DX: K80.50 Calculus of bile duct without cholangitis or cholecystitis without obstruction (principal); R10.11 Right upper quadrant pain; Z03.818 Encounter for observation for suspected exposure to other biological agents ruled out
CPT/HCPCS: 71046; 74177; 76705; 80053; 83690; 84484; 84702; 85025; 87637; 93005; 96374; 99284; 99285; J1885; Q9967

== ENCOUNTER → 2025-06-01 18:56 | Outpatient (BNV) | payer MEDICAID, SELFPAY | PROVIDERS: Emergency Provider Emergency Medicine; PCP Internal Medicine; Visit Provider Internal Medicine Cardiovascular Disease | DX: R07.9 Chest pain, unspecified (principal) | CPT/HCPCS: 93010 ==

== ENCOUNTER → 2025-06-01 19:08 | Outpatient (BNV) | payer MEDICAID, SELFPAY | PROVIDERS: PCP Internal Medicine; Visit Provider Radiology Diagnostic Radiology | DX: R07.9 Chest pain, unspecified (principal) | CPT/HCPCS: 71046 ==

== ENCOUNTER → 2025-06-02 00:02 | Outpatient (BNV) | payer MEDICAID, SELFPAY | PROVIDERS: Emergency Provider Emergency Medicine; PCP Internal Medicine; Visit Provider Radiology Diagnostic Radiology | DX: E27.8 Other specified disorders of adrenal gland (principal); K80.20 Calculus of gallbladder without cholecystitis without obstruction | CPT/HCPCS: 74177; 76705 ==